=== PATIENT | male | born 1960 | race Caucasian/White ===

== ENCOUNTER 2019-03-08 13:12 | Observation (INO) | payer BC ==
[2019-03-08] MEDS ORDERED: Sodium Chloride 0.9% 1,000 ML IV SCH (16:30)
[2019-03-08] MEDS ORDERED: cloNIDine 0.1 MG TAB PO PRN (16:30)
[2019-03-08] MEDS ORDERED: Gabapentin 100 MG CAP PO PRN (16:32)
[2019-03-08] MEDS ORDERED: Guaifenesin DM 100-10/5 ML UDCUP PO PRN (17:27)
[2019-03-08] MEDS ORDERED: Ondansetron PF 4 MG/2 ML Vial IVP PRN (17:27)
[2019-03-08] MEDS ORDERED: Acetaminophen 650 MG Suppository PR PRN (17:27)
[2019-03-08] MEDS ORDERED: Ondansetron ODT 4 MG TAB PO PRN (17:27)
[2019-03-08] MEDS ORDERED: Acetaminophen 325 MG TAB PO PRN (17:27)
[2019-03-08] MEDS ORDERED: Senokot S 8.6-50 MG TAB PO PRN (17:27)
--- NOTE | 2019-03-08 18:24 | ULT ---
EXAM: Carotid vascular duplex with color and spectral Doppler imaging: HISTORY: Left eye pressure, left neck pain following a fall syncope COMPARISON: None FINDINGS: Evidence for plaque. Right ICA: PSV: 73 cm/s EDV: 17 cm/s ICA/CCA ratio: 0.7 Left ICA: PSV: 105 cm/s EDV: 32 cm/s ICA/CCA ratio: 0.9 Antegrade flow is noted within the right vertebral but flow could not be documented within the left v ertebral. IMPRESSION: No hemodynamically significant stenosis. Minimal plaque evidence for carotid artery vascular disease. No documented flow within the left vertebral artery. The patient bone concern, follow-up CT angiogram of the neck might be of benefit.
[2019-03-08 18:33] LABS: Hemoglobin A1c 5.3 % (4.0-6.0)
[2019-03-08 18:43] LABS: Anion Gap 14 mmol/L (10-20); BUN (Urea Nitrogen) 10 mg/dL (8.4-25.7); Calc. Creatinine Clearance 109 mL/min (70-130); Calcium 9.9 mg/dL (7.8-10.44); Carbon Dioxide 27 mmol/L (22-29); Chloride 89 mmol/L (98-107); Estimated GFR-MDRD 76; Glucose 147 mg/dL (70-105); Sodium 127 mmol/L (136-145)
[2019-03-08 18:45] LABS: Potassium 2.9 mmol/L (3.5-5.1)
[2019-03-08] MEDS ORDERED: Potassium Chloride 20 MEQ TAB PO SCH (19:15)
[2019-03-08] MEDS: Cephalexin 250 MG CAP PO SCH (20:45)
[2019-03-08] MEDS: Famotidine 20 MG TAB PO SCH (20:45)
[2019-03-08] MEDS ORDERED: Atorvastatin Calcium 40 MG TAB PO SCH (21:00)
[2019-03-08] MEDS ORDERED: Lisinopril 20 MG TAB PO SCH (21:00)
--- NOTE | 2019-03-09 01:44 | HP ---
PRIMARY CARE PHYSICIAN: Kallie Boss. CHIEF COMPLAINT: Fall with head injury. HISTORY OF PRESENT ILLNESS: This is a 58-year-old white male with a known history of hypertension, hyperlipidemia, and some previously elevated blood sugars as an outpatient. He reports that he got very nauseated and vomited twice last Friday , 3 days ago, then early Friday morning, he thought he was still a little bit better. He did have one diarrheal bowel movement at that time and then he started feeling better, went out to take care of his dogs. When he came back to the house, he got dizzy and suddenly fell, hit right occipital area of his scalp, also with a contusion on his right knee and some scrapes and contusions all over his left forearm. The patient was unsteady, was able to stand back up and then he fell again on the way to his bathroom. He also had passed some diarrhea into his pants at that time. He stated that he was heading for the bathroom when he had his first fall because he felt like he needed to go to the bathroom again. The patient got up slower this time, went to the bathroom and had one more fall, then he went to the bathroom and then laid down and went to sleep. He was feeling a little better the next day, was able to ambulate around without any falls, but did have some intermittent nausea, but was able to eat and drink a little bit. He did continue drinking a large amount of water, which is what he typically does, usually 8-16 cups per day. Then early this morning, he started having nausea again and had some more vomiting. Also felt intermittently dizzy and was having some trouble concentrating. He states that he overall is still little bit better, but thought getting seen , so he went to the [facility] Emergency Room. There, he was noted to have a sodium of between [address] scan of the head was negative. His EKG did not show anything acute, and he was sent over here for further evaluation. PAST MEDICAL HISTORY: 1. Hypertension. 2. Hypertriglyceridemia. 3. Hypercholesterolemia. 4. Elevated blood sugars, uncertain if he has a diagnosis of diabetes or not. 5. 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 PAST SURGICAL HISTORY: 1. Surgeries to mid and low back with carlos placement. 2. Jaw fracture repair. ALLERGIES: NO KNOWN DRUG ALLERGIES. CURRENT MEDICATIONS: 1. Lisinopril 40 mg at night. 2. Chlorthalidone 25 mg daily. 3. Atorvastatin 40 mg at night. 4. Fenofibrate 145 mg daily. 5. Cephalexin 500 mg twice a day. 6. Gabapentin 100 mg 3 times a day as needed. 7. Aspirin 81 mg daily. He skips this as he is getting too much bruising, but he tries to take it every day. 8. Omeprazole 20 mg daily as needed for reflux symptoms. SOCIAL HISTORY: The patient smokes half pack per day. Drinks between 2 and 5 beers daily. No illicit drug use. He lives by himself alone [place]. FAMILY HISTORY: Father recently of Lewy body dementia. Mother of a massive stroke and had lung problems from her smoking and in her 70s. REVIEW OF SYSTEMS: CONSTITUTIONAL: No fevers. No chills. EYES: No double vision or blurred vision. He has had a little bit more trouble focusing on things since he had his fall with head injury. ENT: No congestion, drainage, or sore throat. CARDIOVASCULAR: No chest pain. No palpitations or racing heart. He think he passed out when he fell on his head, but he is not absolutely certain because it happened so quickly. PULMONARY: No coughing, wheezing, or shortness of breath. GASTROINTESTINAL: No abdominal pain, just had some little bit of cramping with some diarrhea previously and vomiting. No current nausea. No current vomiting. He has not had any diarrhea today. GENITOURINARY: No dysuria or hematuria. MUSCULOSKELETAL: He has chronic back pain and a rash around his chest and abdomen if he twist, this is a chronic problem. SKIN: No rashes. He has had abrasions which are healing well. NEUROLOGIC: He has chronic numbness and tingling in his back and tingling down both arms. This is not changed recently. PHYSICAL EXAMINATION: VITAL SIGNS: Blood pressure 145/76, pulse 87, respirations 20, O2 saturation 98 % on room air, temperature 98.9. GENERAL: This is a well-developed, well-nourished white male, in no acute distress. HEENT: Pupils equal, round, and reactive to light. Oropharynx clear without lesions, erythema, or exudate. NECK: Supple. No lymphadenopathy. No thyroid nodules or enlargement. No tenderness to palpation. He has some mild decreased range of motion due to the neck stiffness, which is a chronic problem. HEART: Regular rate and rhythm. No murmurs, rubs, or gallops. LUNGS: Clear to auscultation bilaterally. No wheezes, crackles, or rhonchi. ABDOMEN: Soft, nontender to palpation. Normoactive bowel sounds. No hepatosplenomegaly or other masses. EXTREMITIES: No clubbing, cyanosis, or edema. NEURO: strength, sensation normal in all extremities, 2+ DTRs in all extremities , cranial nerves 2-12 intact and equal bilaterally, normal finger-nose, rapid alternating movements, and heel to mccarthy bilaterally, gait not tested due to concern for further falls, HINTS exam normal SKIN: The patient has some healing abrasions and superficial lacerations on his left arm. The right occiput has an abrasion healing well and he has some bruises and scrapes on his right knee. LABORATORY DATA: Reviewed from [facility] Emergency Room. His sodium is 120. Creatinine and BUN are normal. Blood sugar is normal. Cardiac marker sets are negative. CBC was grossly unremarkable. CT of the brain showed no hemorrhage or acute changes. Chest x-ray showed no abnormalities. EKG showed normal sinus rhythm with possible previous inferior infarct, but no acute changes. ASSESSMENT: 1. Nausea and vomiting with dizziness, possibly secondary to acute gastroenteritis, infectious versus food poisoning. Symptoms seem to be improving some. We will treat him symptomatically. 2. Dizziness with falls. Uncertain if the patient had a true syncopal episode. He has had some trouble focusing, some trouble staying on task when he is giving his history and he reports occasionally having some difficulty writing, inverting letters and things since the fall with head injury. This most likely represents a postconcussive syndrome. However, there is a possibility of an acute stroke. We will put the patient on observation, get an echocardiogram, carotid Dopplers, and an MRI of the brain. We will go ahead and start him on aspirin 325 mg daily for now as well as resume his home medications. 3. Hyponatremia, likely contributing to the patient's symptoms and may even be the instigator if it drops a little bit quickly last Friday and may have been the source of his dizziness and fall with head injury versus just a drop in his food intake with continued large amounts of water intake which he normally does. We will get a urine sodium and osmolality and serum osmolality, as well as hold the hydrochlorothiazide for now. The patient will likely need to discontinue chlorthalidone for the future and may need to do some water restrictions in the future as well. For now, we will restrict him to 1200 mL of liquid per day and put him on a regular diet, not restrict his sodium at this time also. 4. History of hypertension. Resume home medications except for chlorthalidone. 5. Hyperlipidemia and hypertriglyceridemia, resume statin and TriCor and we will check a lipid profile in the morning. 6. History of previous elevated blood sugars, was supposed to be on metformin but change his diet instead. We will check hemoglobin A1c. 7. Gastrointestinal prophylaxis. We will put the patient on Pepcid twice a day. 8. Deep venous thrombosis prophylaxis, put the patient on Lovenox while in the hospital. CODE STATUS: I did discuss the patient he is a full code. Should he be incapacitated, his medical power of traffic law attorney is his son, Miguel Escalante. Job ID: [id number] [facility]
[2019-03-09 05:22] LABS: #Basophils 0.1 thou/uL (0.0-0.2); #Eosinphils 0.2 thou/uL (0.0-0.7); #Monocytes 0.8 thou/uL (0.11-0.59); #Neutrophils 4.7 thou/uL (1.40-6.50); %Basophils 0.7 % (0.0-1.0); %Lymphocytes 25.6 % (21.0-51.0); %Monocytes 10.5 % (0.0-10.0); %Neutrophils 61.2 % (42.0-75.0); Hemoglobin 11.4 g/dL (14.0-18.0); Mean Corpuscular HGB CONC 34.2 g/dL (32.0-36.0); Mean Corpuscular Volume 81.8 fL (78.0-98.0); Mean Platelet Volume 7.9 fL (7.4-10.4); Platelet Count 90 thou/uL (130-400); Platelet Morphology Comment Appears Decreased; RBC Distribution Width 14.4 % (11.5-14.5); RBC Morphology Normal; Red Blood Cell (RBC) Count 4.09 mill/uL (4.70-6.10); White Blood Cell (WBC) Count 7.6 thou/uL (4.8-10.8)
[2019-03-09 05:25] LABS: Anion Gap 16 mmol/L (10-20); BUN (Urea Nitrogen) 15 mg/dL (8.4-25.7); Calc. Creatinine Clearance 116 mL/min (70-130); Calcium 9.3 mg/dL (7.8-10.44); Carbon Dioxide 23 mmol/L (22-29); Cardiac Risk 2.8 (Less than 4.5); Chloride 92 mmol/L (98-107); Cholesterol 87 mg/dl (< 200 Desired); Estimated GFR-MDRD 81; Glucose 124 mg/dL (70-105); HDL Cholesterol 31 mg/dL (>60 Neg Risk); LDL Cholesterol, Calculated 23 mg/dL; Potassium 3.6 mmol/L (3.5-5.1); Sodium 127 mmol/L (136-145); Triglycerides 163 mg/dL (Less than 150)
[2019-03-09] MEDS: Famotidine 20 MG TAB PO SCH (08:12)
[2019-03-09] MEDS: Enoxaparin Sodium 40 MG/0.4 ML SYRINGE SC SCH ×2 (08:12→10:21)
[2019-03-09] MEDS: Cephalexin 250 MG CAP PO SCH (08:13)
[2019-03-09] MEDS ORDERED: Fenofibrate Nanocrystallized 145 MG TAB PO SCH (09:00)
[2019-03-09] MEDS ORDERED: Chlorthalidone 25 MG TAB PO SCH (09:00)
[2019-03-09] MEDS ORDERED: Citalopram 20 MG TAB PO SCH (09:00)
[2019-03-09] MEDS ORDERED: Aspirin 325 mg Enteric Coated Tablet PO SCH (09:00)
--- NOTE | 2019-03-09 09:11 | PDOC.PN ---
- Subjective Encounter Start Date: 03/09/19 Encounter Start Time: 10:45 Subjective: Patient feeling better this AM. No nausea, no dizziness, ambulating -: without unsteadiness, mild cognotive slowing but much better. - Objective Resuscitation Status - Order Detail: 03/08/19 17:27 Resuscitation Status Routine Resuscitation Status: FULL: Full Resuscitation Discussed with: Patient LONG Reviewed: Yes Vital Signs & Weight: Vital Signs (12 hours) Temp Pulse Resp BP BP Pulse Ox 03/09/19 07:54 98.4 F 78 18 115/76 98 03/09/19 04:00 97.8 F 84 16 123/59 L 98 03/09/19 00:00 98.1 F 81 16 116/74 98 Weight Weight 210 lb I&O: 03/08/19 03/09/19 03/10/19 06:59 06:59 06:59 Intake Total 1240 Balance 1240 Result Diagrams: 03/09/19 04:36 03/09/19 04:36 Phys Exam - Physical Examination Constitutional: NAD HEENT: moist MMs Respiratory: no wheezing, no rales, no rhonchi Cardiovascular: RRR, no significant murmur Gastrointestinal: soft, positive bowel sounds Neurological: non-focal, moves all 4 limbs Psychiatric: normal affect, A&O x 3 Dx/Plan (1) Acute gastroenteritis Code(s): K52.9 - NONINFECTIVE GASTROENTERITIS AND COLITIS, UNSPECIFIED Status : Acute (2) Syncope and collapse Code(s): R55 - SYNCOPE AND COLLAPSE Status: Acute (3) Concussion Code(s): S06.0X9A - CONCUSSION W LOSS OF CONSCIOUSNESS OF UNSP DURATION, INIT Status: Acute (4) Hyponatremia Code(s): E87.1 - HYPO-OSMOLALITY AND HYPONATREMIA Status: Acute Comment: Patient with hx of mild hyponatremia in the past, likely secondary to chronic thiazide diuretic with acute illness and only free water intake, will d/c diuretic and monitor for correction. (5) Hypokalemia Code(s): E87.6 - HYPOKALEMIA Status: Resolved Comment: likely due to N/V, diarrhea, and thiazide diuretic use (6) Dyslipidemia Code(s): E78.5 - HYPERLIPIDEMIA, UNSPECIFIED Status: Chronic Comment: controlled (7) HTN (hypertension) Code(s): I10 - ESSENTIAL (PRIMARY) HYPERTENSION Status: Chronic Comment: controlled - Plan cont current plan of care, PT/OT, DVT proph w/lovenox, DVT proph w/SCDs HbA1c normal -: Carotid doppler normal though unable to see left vertebral artery flow, MRI -: and ECHO pending, if MRI abnormal may need CTA head and neck -: If ECHO and MRI normal can d/c home today. * . - Discharge Day Encounter end time: 11:00
--- NOTE | 2019-03-09 09:22 | MRI ---
MRI Brain WO Con: 03/09/2019 5:30 PM CLINICAL HISTORY: . COMPARISON: None. FINDINGS: Extra axial spaces: Normal in size and morphology for the patient's age. Hemorrhage: None. Ventricular system: Mildly dilated, likely due to compensatory dilatation from mild parenchymal volum e loss. Basal cisterns: Normal. Cerebral parenchyma: Microvascular ischemic changes. Midline shift: None. Cerebellum: Normal. Brainstem: Normal. Paranasal sinuses:Mild paranasal sinus mucosal thickening, and bilateral mastoid fluid. IMPRESSION:No acute intracranial abnormality. Mild chronic ischemic disease. Mild peripheral atrophy with compensatory dilatation of ventricular system. Correlate clinically.
[2019-03-09 14:46] VITALS: BMI 26.9
[2019-03-09 16:04] VITALS: BP 127/83; TEMP 98.5
--- NOTE | 2019-03-10 02:59 | DIS ---
DATE OF ADMISSION: 03/08/2019 DATE OF DISCHARGE: 03/09/2019 PRIMARY CARE PHYSICIAN: Dr. Santino Shetty at [facility]. REASON FOR ADMISSION: Dizziness with falls and head injury. DIAGNOSES AT DISCHARGE: 1. Acute gastroenteritis, resolved. 2. Syncope and collapse. 3. Concussion. 4. Hyponatremia. 5. Hypokalemia. 6. Dyslipidemia. 7. Hypertension. PROCEDURES: 1. Carotid Dopplers with no hemodynamically significant stenosis, could not document flow in the left vertebral. 2. MRI of the brain showing no acute intracranial abnormalities, mild chronic ischemic disease, and mild peripheral atrophy with compensatory dilatation of ventricular system. CONSULTATIONS: None. SUMMARY OF HOSPITAL COURSE: This is a 58-year-old white male with a known history of hypertension, hyperlipidemia, and some previously elevated blood sugars, controlled with diet. He reported nausea and vomiting 3 days ago prior to admission and then had some diarrhea. He felt like he is going to have diarrhea again and then had a fall on his way to the bathroom, felt dizzy and lightheaded prior to falling, may have passed out. He did crack his head with the right occipital scalp contusion and laceration with bleeding. He fell several more times getting to the bathroom at time. He rested and got better at home, but was still very dizzy and nauseated, so went into [facility] Emergency Room on the day of admission. There, he had a negative CT of the head, normal EKG, but was noted to be hyponatremic, sodium in the 120s to 125s and low potassium. The patient was transferred here for further workup. In our hospital, he had carotid Dopplers and MRI as above. He had his potassium replaced and it came back to normal. He had his thiazide diuretic stopped and his sodium improved up to 127. He was having no more dizziness, was able to ambulate steadily without any problems in the hallway with physical therapy. He had no evidence of stroke on exam or on MRI. He did have an echocardiogram which the read is pending, but he is doing well and is eager to go home. DISCHARGE MANAGEMENT: Discharged to home. FOLLOWUP: Follow up with primary care physician in 1 week. Can follow up on echo results at that time. ACTIVITY: As tolerated. DIET: Healthy heart diet, but not a fluid restriction. MEDICATIONS: The patient is to stop his chlorthalidone and resume all of his other home medications. 1. Aspirin 81 mg daily. 2. Atorvastatin 40 mg at night. 3. Cephalexin 500 mg twice a day. 4. Fenofibrate 145 mg daily. 5. Gabapentin 100 mg 3 times a day. 6. Lisinopril 40 mg at night. 7. Omeprazole 20 mg daily. Job ID: [id number]
== END 2019-03-09 17:56 | disposition home or self-care (01) ==
LOC: 2SE 13:41
PROVIDERS: ADMIT Internal Medicine; ATTEND Internal Medicine
DX: R55 Syncope and collapse (principal); R11.2 Nausea with vomiting, unspecified; R42 Dizziness and giddiness; S01.01XA Laceration without foreign body of scalp, initial encounter; S80.01XA Contusion of right knee, initial encounter; S50.12XA Contusion of left forearm, initial encounter; I10 Essential (primary) hypertension; E78.5 Hyperlipidemia, unspecified; E78.00 Pure hypercholesterolemia, unspecified; F17.210 Nicotine dependence, cigarettes, uncomplicated; E87.1 Hypo-osmolality and hyponatremia; K52.9 Noninfective gastroenteritis and colitis, unspecified; S06.0X9A Concussion with loss of consciousness of unspecified duration, initial encounter; Z79.82 Long term (current) use of aspirin; Z79.899 Other long term (current) drug therapy; Z98.890 Other specified postprocedural states; W19.XXXA Unspecified fall, initial encounter; Y92.009 Unspecified place in unspecified non-institutional (private) residence as the place of occurrence of the external cause
CPT/HCPCS: 36415; 70551; 80048; 80061; 83036; 83930; 83935; 84300; 85025; 93306; 93880; G0378; J1650

== ENCOUNTER 2023-06-24 11:23 | Inpatient (IN) | payer BC, OTHER, SELFPAY ==
[~2023-06-24 11:23] MED LIST: Iopamidol-370 76% 500 ML MDV (1 ML CHARGE) ONE; Magnevist 469MG/ML 20 ML VIAL ONE
[2023-06-24] MEDS ORDERED: Boostrix 0.5 ML (Tdap) VIAL (>/=7 yrs of age) ONE (11:28)
[2023-06-24 11:44] LABS: #Monocytes 0.3 thou/uL (0.11-0.59); #Neutrophils 6.5 thou/uL (1.40-6.50); %Basophils 0.4 % (0.0-1.0); %Eosinophils 0.3 % (0.0-10.0); %Lymphocytes 8.1 % (21.0-51.0); Hematocrit 30.9 % (42.0-52.0); Hemoglobin 10.3 g/dL (14.0-18.0); Mean Corpuscular HGB CONC 33.3 g/dL (32.0-36.0); Mean Corpuscular Hemoglobin 27.4 pg (27.0-31.0); Mean Corpuscular Volume 82.2 fl (78.0-98.0); Platelet Count 52 10x3/uL (130-400); RBC Distribution Width 19.1 % (11.5-14.5); Red Blood Cell (RBC) Count 3.76 mill/uL (4.70-6.10); White Blood Cell (WBC) Count 7.5 10x3/uL (4.8-10.8)
[2023-06-24 11:56] LABS: INR-International Normal Ratio 1.2; PTT 31.3 sec (22.9-36.1); Prothrombin Time 15.2 sec (12.0-14.7)
[2023-06-24 12:15] LABS: ALT (SGPT) 118 U/L (8-55); AST (SGOT) 257 U/L (5-34); Acetaminophen Less than 10 mcg/mL (10.0-30.0); Albumin 3.3 g/dL (3.4-4.8); Alcohol Less than 10.0 mg/dL (Less than 10); Alkaline Phosphatase 252 U/L (40-110); Anion Gap 26 mmol/L (10-20); BUN (Urea Nitrogen) 6 mg/dL (8.4-25.7); Bilirubin, Total 2.7 mg/dL (0.2-1.2); Calc. Creatinine Clearance 0 mL/min (70-130); Calcium 8.2 mg/dL (7.8-10.44); Carbon Dioxide 10 mmol/L (23-31); Chloride 91 mmol/L (98-107); Estimated GFR 101; Glucose 259 mg/dL (80-115); Potassium 3.6 mmol/L (3.5-5.1); Protein, Total 6.3 g/dL (5.8-8.1); Salicylate Less than 8.0 mg/dL (15.0-30.0); Sodium 123 mmol/L (136-145)
[2023-06-24 13:02] LABS: Amphetamine Not Detected (NotDetected); Barbiturates Screen Not Detected (NotDetected); Benzodiazepine Screen Not Detected (NotDetected); Cocaine Metabolite Screen Not Detected (NotDetected); Methadone Not Detected (NotDetected); Methamphetamine Not Detected (NotDetected); Opiate Screen Not Detected (NotDetected); Oxycodone Screen Not Detected (NotDetected); Phencyclidine (PCP) Not Detected (NotDetected); THC/Cannabinoid Screen Not Detected (NotDetected); Tricyclic Screen Not Detected (NotDetected)
[2023-06-24] MEDS ORDERED: Cefepime 2 GM VIAL ONE (13:24)
[2023-06-24] MEDS ORDERED: VANCOMYCIN 1.25 GM/250 ML BAG 1.25 GM in Premix Bag 1 BAG IVPB SCH (13:45)
[2023-06-24 13:50] LABS: Actual Bicarbonate (HCO3v) 17.1 mEq/L (22-28); Base Excess -5.7 mEq/L (-2.0 to +3.0); Calcium, Ionized (venous) 0.94 mmol/L (1.16-1.32); Chloride (VBG) 95 mmol/L (98-106); Hematocrit-VBG 31 % (42.0-52.0); Hemoglobin (Hb) 10.4 g/dL (13.1-17.2); Potassium (VBG) 2.84 mmol/L (3.70-5.30); pH (venous) 7.447 (7.32-7.43)
[2023-06-24 14:06] LABS: CKMB 6.6 ng/mL (0-6.6)
[2023-06-24] MEDS ORDERED: Ondansetron ODT 4 MG TAB PO PRN (14:40)
[2023-06-24] MEDS ORDERED: Lorazepam 2 MG/ML VIAL IM PRN (14:40)
[2023-06-24] MEDS ORDERED: Electrolyte Replacement Protocol 1 EACH FS SCH (14:45)
[2023-06-24] MEDS ORDERED: Senokot S 8.6-50 MG TAB PO PRN (14:49)
[2023-06-24] MEDS ORDERED: Calcium Carbonate 500 MG ChewTAB PO PRN (14:49)
[2023-06-24] MEDS ORDERED: Dextrose 5% in Water 1,000 ML IV PRN (14:55)
[2023-06-24] MEDS ORDERED: Dextrose 50% Abboject 50 ML SYRINGE SLOW IVP PRN (14:55)
[2023-06-24] MEDS ORDERED: Insulin Regular 300 UNITS/3 ML VIAL SC PRN ×2 (14:55)
[2023-06-24] MEDS ORDERED: Glucagon 1 MG/ML KIT IM PRN (14:55)
[2023-06-24 14:56] LABS: Lactic Acid 3.6 mmol/L (0.5-2.2)
[2023-06-24] MEDS ORDERED: Lactated Ringer's 1,000 ML IV SCH (15:00)
[2023-06-24 15:08] LABS: Lipase 81 U/L (8-78); Magnesium 1.4 mg/dL (1.6-2.6)
[2023-06-24 15:25] LABS: Bacteria/HPF 1+ HPF (None Seen); Bilirubin Negative (Negative); Blood, Urine 1+ (Negative); CAUTI Indications for Culture Dysuria,urgency,freq; Clarity Clear (Clear); Glucose, Urine (Dipstick) 500 mg/dL (Negative); Ketone, Urine Negative (Negative); Leukocyte Negative Leu/uL (Negative); Nitrite Negative (Negative); Protein, Urine (Dipstick) 10 mg/dL (Neg-Trace); RBC/HPF 0-3 HPF (0-3); Specific Gravity, Urine 1.019 (1.002-1.036); Sperm/HPF Rare HPF (None Seen); Squamous Epithelial 0-3 HPF (0-3); Urobilinogen Normal mg/dL (Less than 2); WBC/HPF 0-3 HPF (0-3)
[2023-06-24 15:26] LABS: Urine Culture Reflex No No
[2023-06-24] MEDS ORDERED: Piperacillin/Tazobactam 3.375 GM in Sodium Chloride 0.9% 100 ML IVPB SCH ×2 (16:00→20:00)
[2023-06-24 16:36] LABS: Anion Gap 16 mmol/L (10-20); BUN (Urea Nitrogen) 4 mg/dL (8.4-25.7); Calc. Creatinine Clearance 0 mL/min (70-130); Calcium 7.4 mg/dL (7.8-10.44); Carbon Dioxide 19 mmol/L (23-31); Chloride 97 mmol/L (98-107); Estimated GFR 105; Glucose 165 mg/dL (80-115); Sodium 129 mmol/L (136-145)
[2023-06-24 16:49] LABS: Potassium 2.6 mmol/L (3.5-5.1)
[2023-06-24 16:50] LABS: Phosphorus 1.4 mg/dL (2.3-4.7)
[2023-06-24] MEDS ORDERED: Magnesium Sulfate In Water 4 GM in Premix Bag 1 BAG IVPB SCH ×2 (17:00→17:15)
[2023-06-24] MEDS ORDERED: Magnesium Sulfate 4 GM in Sodium Chloride 0.9% 250 ML 250 ML IVPB SCH (17:00)
[2023-06-24] MEDS ORDERED: Aspirin 81 mg Enteric Coated Tablet PO SCH (17:00)
[2023-06-24 17:08] LABS: CKMB 8.8 ng/mL (0-6.6)
[2023-06-24] MEDS ORDERED: Electrolyte Replacement Protocol FS PRN (17:15)
[2023-06-24] MEDS ORDERED: PHOS-NAK 1 PKT PACK PO SCH (17:15)
[2023-06-24] MEDS ORDERED: Potassium Chloride 20 MEQ TAB PO SCH (17:15)
[2023-06-24] MEDS ORDERED: D5 1/2 NS w/40 mEq KCL 1,000 ML IV SCH (17:30)
[2023-06-24] MEDS: Thiamine HCl 200 MG/2 ML VIAL SLOW IVP SCH (18:46)
[2023-06-24 19:40] VITALS: BMI 24.0
[2023-06-24] MEDS: Cyanocobalamin (Vitamin B-12) 1,000 MCG TAB PO SCH (21:45)
[2023-06-24] MEDS: Famotidine 20 MG TAB PO SCH (21:45)
[2023-06-24] MEDS: Piperacillin/Tazobactam 3.375 GM in Sodium Chloride 0.9% 100 ML IVPB SCH (21:45)
[2023-06-24 23:21] LABS: Bacteria/HPF None Seen HPF (None Seen); Bilirubin Negative (Negative); Blood, Urine Negative (Negative); Clarity Clear (Clear); Glucose, Urine (Dipstick) Normal (Negative); Ketone, Urine Negative (Negative); Leukocyte Negative Leu/uL (Negative); Nitrite Negative (Negative); Protein, Urine (Dipstick) Negative (Neg-Trace); RBC/HPF 0-3 HPF (0-3); Specific Gravity, Urine 1.015 (1.002-1.036); Squamous Epithelial None Seen HPF (0-3); Urobilinogen Normal mg/dL (Less than 2); WBC/HPF None Seen HPF (0-3)
[2023-06-25] MEDS ORDERED: ABX IVPB PRN (03:27)
[2023-06-25] MEDS: Lorazepam 1 MG TAB PO PRN ×2 (03:40→18:30)
[2023-06-25 04:21] LABS: #Monocytes 0.4 thou/uL (0.11-0.59); #Neutrophils 3.7 thou/uL (1.40-6.50); %Basophils 0.4 % (0.0-1.0); %Eosinophils 0.6 % (0.0-10.0); %Lymphocytes 14.7 % (21.0-51.0); %Monocytes 8.8 % (0.0-10.0); %Neutrophils 74.9 % (42.0-75.0); Hematocrit 28.7 % (42.0-52.0); Hemoglobin 9.4 g/dL (14.0-18.0); Mean Corpuscular HGB CONC 32.8 g/dL (32.0-36.0); Mean Corpuscular Hemoglobin 26.9 pg (27.0-31.0); Mean Platelet Volume 11.9 fL (7.4-10.4); White Blood Cell (WBC) Count 4.9 10x3/uL (4.8-10.8)
[2023-06-25 04:25] LABS: Platelet Count 45 10x3/uL (130-400)
[2023-06-25 04:35] LABS: Lactic Acid 2.8 mmol/L (0.5-2.2)
[2023-06-25 05:30] LABS: ALT (SGPT) 87 U/L (8-55); AST (SGOT) 165 U/L (5-34); Alkaline Phosphatase 222 U/L (40-110); Anion Gap 15 mmol/L (10-20); BUN (Urea Nitrogen) Less than 4 mg/dL (8.4-25.7); Bilirubin, Total 2.1 mg/dL (0.2-1.2); CK (CPK) 518 U/L (30-200); Calc. Creatinine Clearance 134 mL/min (70-130); Calcium 7.3 mg/dL (7.8-10.44); Carbon Dioxide 21 mmol/L (23-31); Chloride 95 mmol/L (98-107); Estimated GFR 107; Globulin 2.7 g/dL (2.4-3.5); Glucose 156 mg/dL (80-115); Magnesium 1.7 mg/dL (1.6-2.6); Phosphorus 2.3 mg/dL (2.3-4.7); Potassium 2.7 mmol/L (3.5-5.1); Protein, Total 5.7 g/dL (5.8-8.1); Sodium 128 mmol/L (136-145)
[2023-06-25] MEDS ORDERED: levETIRAcetam 500 MG/5 ML VIAL IVPB SCH (06:00)
[2023-06-25] MEDS ORDERED: Magnesium 2 GM/50 ML(in water) 2 GM in Premix Bag 1 BAG IVPB SCH (06:15)
[2023-06-25] MEDS ORDERED: Potassium Chloride 20 MEQ TAB PO SCH (06:15)
[2023-06-25] MEDS: Piperacillin/Tazobactam 3.375 GM in Sodium Chloride 0.9% 100 ML IVPB SCH ×2 (06:55→13:12)
[2023-06-25] MEDS: Famotidine 20 MG TAB PO SCH ×2 (09:40→19:56)
[2023-06-25] MEDS: Multivit, Therapeutic 1 TAB PO SCH (09:40)
[2023-06-25] MEDS: Folic Acid 1 MG TAB PO SCH (09:40)
[2023-06-25] MEDS: Potassium Chloride 20 MEQ in Premix Bag 1 BAG IVPB SCH ×4 (09:41→16:21)
[2023-06-25] MEDS: VANCOMYCIN 1.25 GM/250 ML BAG 1.25 GM in Premix Bag 1 BAG IVPB SCH ×2 (09:42→13:17)
[2023-06-25 10:20] LABS: CKMB 7.5 ng/mL (0-6.6)
[2023-06-25] MEDS: Thiamine HCl 200 MG/2 ML VIAL SLOW IVP SCH (16:21)
[2023-06-25] MEDS ORDERED: Lorazepam 2 MG/ML VIAL SLOW IVP PRN (19:42)
[2023-06-25] MEDS: Cyanocobalamin (Vitamin B-12) 1,000 MCG TAB PO SCH (19:56)
[2023-06-25] MEDS: chlordiazePOXIDE HCl 25 MG CAP PO SCH (19:56)
[2023-06-25] MEDS: levETIRAcetam 500 MG TAB PO SCH (19:56)
[2023-06-25 20:13] LABS: Critical Call Chem Troponin I DECREASE; Troponin I 0.544 ng/mL (< 0.028)
[2023-06-25] MEDS ORDERED: Dexmedetomidine 400 MCG, Admixture Fee 1 EACH in Sodium Chloride 0.9% 96 ML IVPB SCH (21:00)
[2023-06-25] MEDS ORDERED: Dexmedetomidine In 0.9 % NaCl 100 ML IVPB SCH (21:00)
[2023-06-25] MEDS: CEFAZOLIN 2 GM in Sodium Chloride 0.9% 100 ML IVPB SCH (21:21)
[2023-06-25 23:00] LABS: Critical Call Chem Troponin I RESULT DECREASING; Troponin I 0.538 ng/mL (< 0.028)
[2023-06-26] MEDS: CEFAZOLIN 2 GM in Sodium Chloride 0.9% 100 ML IVPB SCH ×3 (05:20→22:23)
[2023-06-26 08:28] LABS: #Eosinphils 0.1 thou/uL (0.0-0.7); #Monocytes 0.5 thou/uL (0.11-0.59); #Neutrophils 3.1 thou/uL (1.40-6.50); %Basophils 0.6 % (0.0-1.0); %Eosinophils 1.6 % (0.0-10.0); %Lymphocytes 23.9 % (21.0-51.0); %Monocytes 9.5 % (0.0-10.0); %Neutrophils 63.8 % (42.0-75.0); Hemoglobin 9.9 g/dL (14.0-18.0); Mean Corpuscular HGB CONC 31.9 g/dL (32.0-36.0); Mean Corpuscular Hemoglobin 28.1 pg (27.0-31.0); Mean Corpuscular Volume 88.1 fl (78.0-98.0); Mean Platelet Volume 10.7 fL (7.4-10.4); RBC Distribution Width 19.7 % (11.5-14.5); Red Blood Cell (RBC) Count 3.52 mill/uL (4.70-6.10); White Blood Cell (WBC) Count 4.9 10x3/uL (4.8-10.8)
[2023-06-26 08:37] LABS: Platelet Count 48 10x3/uL (130-400)
[2023-06-26 08:47] LABS: Vancomycin, Trough 6.5 ug/mL
[2023-06-26 08:58] LABS: Anion Gap 12 mmol/L (10-20); BUN (Urea Nitrogen) Less than 4 mg/dL (8.4-25.7); Calc. Creatinine Clearance 120 mL/min (70-130); Carbon Dioxide 24 mmol/L (23-31); Chloride 100 mmol/L (98-107); Estimated GFR 104; Glucose 130 mg/dL (80-115); Potassium 3.4 mmol/L (3.5-5.1); Sodium 133 mmol/L (136-145)
[2023-06-26] MEDS: levETIRAcetam 500 MG TAB PO SCH ×2 (09:54→20:16)
[2023-06-26] MEDS: chlordiazePOXIDE HCl 25 MG CAP PO SCH ×3 (09:54→20:16)
[2023-06-26] MEDS: Folic Acid 1 MG TAB PO SCH (09:55)
[2023-06-26] MEDS: Famotidine 20 MG TAB PO SCH ×2 (09:55→20:16)
[2023-06-26] MEDS: Multivit, Therapeutic 1 TAB PO SCH (09:55)
[2023-06-26] MEDS ORDERED: Magnesium 2 GM/50 ML(in water) 2 GM in Premix Bag 1 BAG IVPB SCH (10:00)
[2023-06-26] MEDS ORDERED: Potassium Chloride 20 MEQ TAB PO SCH (10:00)
[2023-06-26] MEDS: Potassium Chloride 20 MEQ in Premix Bag 1 BAG IVPB SCH ×2 (10:13→13:16)
[2023-06-26 10:45] LABS: Iron 100 ug/dL (65-175); Iron Binding Capacity, Total 320 mcg/dL (261-462)
[2023-06-26 11:11] LABS: Ferritin 147.02 ng/mL (22-322)
[2023-06-26 11:24] LABS: Vitamin B12 Greater than 2000 pg/mL (211-911)
[2023-06-26 15:56] LABS: CEA, Serum 3.45 ng/mL (< or = 5.0)
[2023-06-26 15:57] LABS: PSA-Asymptomatic (SCREENING) 0.346 ng/mL (0-4.0)
[2023-06-26] MEDS: Thiamine HCl 200 MG/2 ML VIAL SLOW IVP SCH (16:44)
[2023-06-26] MEDS: Cyanocobalamin (Vitamin B-12) 1,000 MCG TAB PO SCH (20:16)
[2023-06-27 05:16] LABS: Anion Gap 15 mmol/L (10-20); BUN (Urea Nitrogen) 4 mg/dL (8.4-25.7); Calc. Creatinine Clearance 120 mL/min (70-130); Calcium 8.6 mg/dL (7.8-10.44); Carbon Dioxide 20 mmol/L (23-31); Chloride 103 mmol/L (98-107); Estimated GFR 104; Glucose 115 mg/dL (80-115); Potassium 4.4 mmol/L (3.5-5.1); Sodium 134 mmol/L (136-145)
[2023-06-27] MEDS: CEFAZOLIN 2 GM in Sodium Chloride 0.9% 100 ML IVPB SCH ×3 (05:21→21:31)
[2023-06-27] MEDS: Folic Acid 1 MG TAB PO SCH (09:56)
[2023-06-27] MEDS: levETIRAcetam 500 MG TAB PO SCH ×2 (09:56→20:45)
[2023-06-27] MEDS: Thiamine 100 MG TAB PO SCH (09:57)
[2023-06-27] MEDS: Multivit, Therapeutic 1 TAB PO SCH (09:57)
[2023-06-27] MEDS: chlordiazePOXIDE HCl 25 MG CAP PO SCH ×3 (09:57→20:45)
[2023-06-27] MEDS: Famotidine 20 MG TAB PO SCH ×2 (09:57→20:45)
[2023-06-27] MEDS ORDERED: Lorazepam 0.5 MG TAB PO PRN (14:40)
[2023-06-27] MEDS: Cyanocobalamin (Vitamin B-12) 1,000 MCG TAB PO SCH (20:45)
[2023-06-27] MEDS: Dexamethasone 4 mg/ml Vial SLOW IVP SCH (20:45)
[2023-06-28] MEDS: Guaifenesin DM 100-10/5 ML UDCUP PO PRN ×2 (03:45→10:00)
[2023-06-28] MEDS: CEFAZOLIN 2 GM in Sodium Chloride 0.9% 100 ML IVPB SCH ×3 (05:46→23:01)
[2023-06-28 07:58] LABS: #Monocytes 0.5 thou/uL (0.11-0.59); #Neutrophils 3.9 thou/uL (1.40-6.50); %Basophils 0.4 % (0.0-1.0); %Eosinophils 0.2 % (0.0-10.0); %Lymphocytes 17.3 % (21.0-51.0); %Monocytes 9.4 % (0.0-10.0); %Neutrophils 71.8 % (42.0-75.0); Hematocrit 28.1 % (42.0-52.0); Hemoglobin 8.6 g/dL (14.0-18.0); Mean Corpuscular HGB CONC 30.6 g/dL (32.0-36.0); Mean Corpuscular Hemoglobin 28.1 pg (27.0-31.0); Mean Corpuscular Volume 91.8 fl (78.0-98.0); Mean Platelet Volume 10.7 fL (7.4-10.4); RBC Distribution Width 22.1 % (11.5-14.5); Red Blood Cell (RBC) Count 3.06 mill/uL (4.70-6.10); White Blood Cell (WBC) Count 5.4 10x3/uL (4.8-10.8)
[2023-06-28 08:01] LABS: Platelet Count 55 10x3/uL (130-400)
[2023-06-28 08:16] LABS: Anion Gap 14 mmol/L (10-20); BUN (Urea Nitrogen) 6 mg/dL (8.4-25.7); Calc. Creatinine Clearance 112 mL/min (70-130); Calcium 8.6 mg/dL (7.8-10.44); Carbon Dioxide 24 mmol/L (23-31); Chloride 102 mmol/L (98-107); Estimated GFR 101; Glucose 126 mg/dL (80-115); Magnesium 1.5 mg/dL (1.6-2.6); Phosphorus 4.5 mg/dL (2.3-4.7); Potassium 4.1 mmol/L (3.5-5.1); Sodium 136 mmol/L (136-145)
[2023-06-28] MEDS ORDERED: guaiFENesin 200 MG TAB PO PRN (08:38)
[2023-06-28] MEDS ORDERED: Magnesium 2 GM/50 ML(in water) 2 GM in Premix Bag 1 BAG IVPB SCH (09:00)
[2023-06-28] MEDS: levETIRAcetam 500 MG TAB PO SCH ×2 (10:01→20:18)
[2023-06-28] MEDS: Dexamethasone 4 mg/ml Vial SLOW IVP SCH ×2 (10:01→20:18)
[2023-06-28] MEDS: Folic Acid 1 MG TAB PO SCH (10:01)
[2023-06-28] MEDS: chlordiazePOXIDE HCl 25 MG CAP PO SCH ×2 (10:01→15:21)
[2023-06-28] MEDS: Benzonatate 100 MG CAP PO PRN (10:01)
[2023-06-28] MEDS: Famotidine 20 MG TAB PO SCH ×2 (10:02→20:19)
[2023-06-28] MEDS: Multivit, Therapeutic 1 TAB PO SCH (10:02)
[2023-06-28] MEDS: Thiamine 100 MG TAB PO SCH (10:02)
[2023-06-28] MEDS: Cyanocobalamin (Vitamin B-12) 1,000 MCG TAB PO SCH (20:18)
[2023-06-28] MEDS ORDERED: chlordiazePOXIDE HCl 5 MG CAP PO SCH (21:00)
[2023-06-29 04:03] LABS: #Monocytes 0.6 thou/uL (0.11-0.59); #Neutrophils 5.1 thou/uL (1.40-6.50); %Lymphocytes 15.4 % (21.0-51.0); %Monocytes 8.1 % (0.0-10.0); %Neutrophils 75.5 % (42.0-75.0); Hemoglobin 8.3 g/dL (14.0-18.0); Mean Corpuscular HGB CONC 30.7 g/dL (32.0-36.0); Mean Corpuscular Hemoglobin 28.4 pg (27.0-31.0); Mean Corpuscular Volume 92.5 fl (78.0-98.0); Mean Platelet Volume 10.9 fL (7.4-10.4); RBC Distribution Width 23.2 % (11.5-14.5); Red Blood Cell (RBC) Count 2.92 mill/uL (4.70-6.10); White Blood Cell (WBC) Count 6.8 10x3/uL (4.8-10.8)
[2023-06-29 04:07] LABS: Platelet Count 61 10x3/uL (130-400)
[2023-06-29 04:25] LABS: Phosphorus 3.8 mg/dL (2.3-4.7)
[2023-06-29 04:34] LABS: Anion Gap 13 mmol/L (10-20); BUN (Urea Nitrogen) 8 mg/dL (8.4-25.7); Calc. Creatinine Clearance 119 mL/min (70-130); Calcium 8.7 mg/dL (7.8-10.44); Carbon Dioxide 24 mmol/L (23-31); Chloride 101 mmol/L (98-107); Estimated GFR 104; Glucose 161 mg/dL (80-115); Magnesium 1.7 mg/dL (1.6-2.6); Potassium 4.1 mmol/L (3.5-5.1); Sodium 134 mmol/L (136-145)
[2023-06-29] MEDS: CEFAZOLIN 2 GM in Sodium Chloride 0.9% 100 ML IVPB SCH ×3 (06:27→21:22)
[2023-06-29 08:49] LABS: ALT (SGPT) 27 U/L (8-55); AST (SGOT) 57 U/L (5-34); Albumin 3.2 g/dL (3.4-4.8); Alkaline Phosphatase 132 U/L (40-110); Bilirubin, Direct 0.4 mg/dL (0.1-0.3); Bilirubin, Total 0.7 mg/dL (0.2-1.2)
[2023-06-29] MEDS ORDERED: Magnesium 2 GM/50 ML(in water) 2 GM in Premix Bag 1 BAG IVPB SCH (09:00)
[2023-06-29] MEDS: Thiamine 100 MG TAB PO SCH (09:54)
[2023-06-29] MEDS: Folic Acid 1 MG TAB PO SCH (09:54)
[2023-06-29] MEDS: Famotidine 20 MG TAB PO SCH ×2 (09:54→20:13)
[2023-06-29] MEDS: Multivit, Therapeutic 1 TAB PO SCH (09:54)
[2023-06-29] MEDS: levETIRAcetam 500 MG TAB PO SCH ×2 (09:54→20:13)
[2023-06-29] MEDS: Dexamethasone 4 mg/ml Vial SLOW IVP SCH ×2 (09:55→20:13)
[2023-06-29] MEDS: Cyanocobalamin (Vitamin B-12) 1,000 MCG TAB PO SCH (20:13)
[2023-06-29] MEDS: Benzonatate 100 MG CAP PO PRN (21:21)
[2023-06-29] MEDS: Guaifenesin DM 100-10/5 ML UDCUP PO PRN (21:21)
[2023-06-30 04:36] LABS: #Monocytes 0.8 thou/uL (0.11-0.59); #Neutrophils 4.2 thou/uL (1.40-6.50); %Basophils 0.2 % (0.0-1.0); %Eosinophils 0.2 % (0.0-10.0); %Lymphocytes 19.2 % (21.0-51.0); %Monocytes 12.2 % (0.0-10.0); %Neutrophils 67.2 % (42.0-75.0); Hematocrit 25.6 % (42.0-52.0); Hemoglobin 7.8 g/dL (14.0-18.0); Mean Corpuscular HGB CONC 30.5 g/dL (32.0-36.0); Mean Corpuscular Hemoglobin 28.5 pg (27.0-31.0); Mean Corpuscular Volume 93.4 fl (78.0-98.0); Mean Platelet Volume 10.2 fL (7.4-10.4); Red Blood Cell (RBC) Count 2.74 mill/uL (4.70-6.10); White Blood Cell (WBC) Count 6.2 10x3/uL (4.8-10.8)
[2023-06-30 04:39] LABS: Platelet Count 61 10x3/uL (130-400)
[2023-06-30 05:04] LABS: Anion Gap 10 mmol/L (10-20); BUN (Urea Nitrogen) 11 mg/dL (8.4-25.7); Calc. Creatinine Clearance 121 mL/min (70-130); Calcium 8.5 mg/dL (7.8-10.44); Carbon Dioxide 26 mmol/L (23-31); Chloride 101 mmol/L (98-107); Estimated GFR 104; Glucose 129 mg/dL (80-115); Magnesium 1.7 mg/dL (1.6-2.6); Sodium 133 mmol/L (136-145)
[2023-06-30] MEDS: CEFAZOLIN 2 GM in Sodium Chloride 0.9% 100 ML IVPB SCH ×3 (05:25→21:16)
[2023-06-30] MEDS ORDERED: Magnesium 2 GM/50 ML(in water) 2 GM in Premix Bag 1 BAG IVPB SCH (08:00)
[2023-06-30] MEDS ORDERED: Propofol 500 MG/50 ML VIAL ONE (08:27)
[2023-06-30] MEDS ORDERED: Glycopyrrolate 0.2 MG/ML 5 ML SYRINGE ONE (08:38)
[2023-06-30] MEDS: Multivit, Therapeutic 1 TAB PO SCH (09:37)
[2023-06-30] MEDS: Dexamethasone 4 mg/ml Vial SLOW IVP SCH ×2 (09:37→20:28)
[2023-06-30] MEDS: levETIRAcetam 500 MG TAB PO SCH ×2 (09:37→20:27)
[2023-06-30] MEDS: Famotidine 20 MG TAB PO SCH ×2 (09:37→20:27)
[2023-06-30] MEDS: Folic Acid 1 MG TAB PO SCH (09:37)
[2023-06-30] MEDS: Ferrous Gluconate 324 MG TAB PO SCH (09:37)
[2023-06-30] MEDS: Thiamine 100 MG TAB PO SCH (09:37)
[2023-06-30 13:13] LABS: Methylmalonic Acid 112 nmol/L (0-378)
[2023-06-30] MEDS: Benzonatate 100 MG CAP PO SCH ×2 (16:54→20:27)
[2023-06-30] MEDS: Guaifenesin DM 100-10/5 ML UDCUP PO PRN (20:26)
[2023-06-30] MEDS: Cyanocobalamin (Vitamin B-12) 1,000 MCG TAB PO SCH (20:27)
[2023-07-01] MEDS: CEFAZOLIN 2 GM in Sodium Chloride 0.9% 100 ML IVPB SCH ×3 (04:53→21:53)
[2023-07-01] MEDS: Ferrous Gluconate 324 MG TAB PO SCH (09:04)
[2023-07-01] MEDS: levETIRAcetam 500 MG TAB PO SCH ×2 (09:04→19:55)
[2023-07-01] MEDS: Thiamine 100 MG TAB PO SCH (09:04)
[2023-07-01] MEDS: Famotidine 20 MG TAB PO SCH ×2 (09:04→19:55)
[2023-07-01] MEDS: Multivit, Therapeutic 1 TAB PO SCH (09:05)
[2023-07-01] MEDS: Dexamethasone 4 mg/ml Vial SLOW IVP SCH (09:05)
[2023-07-01] MEDS: Folic Acid 1 MG TAB PO SCH (09:05)
[2023-07-01] MEDS: Benzonatate 100 MG CAP PO SCH ×3 (09:05→19:55)
[2023-07-01 09:36] LABS: #Eosinphils 0.1 thou/uL (0.0-0.7); #Monocytes 1.5 thou/uL (0.11-0.59); #Neutrophils 3.6 thou/uL (1.40-6.50); %Basophils 0.1 % (0.0-1.0); %Eosinophils 1.2 % (0.0-10.0); %Monocytes 19.9 % (0.0-10.0); %Neutrophils 49.1 % (42.0-75.0); Hematocrit 29.5 % (42.0-52.0); Hemoglobin 9.1 g/dL (14.0-18.0); Mean Corpuscular HGB CONC 30.8 g/dL (32.0-36.0); Mean Corpuscular Hemoglobin 29.5 pg (27.0-31.0); Mean Corpuscular Volume 95.8 fl (78.0-98.0); Mean Platelet Volume 10.2 fL (7.4-10.4); RBC Distribution Width 24.4 % (11.5-14.5); Red Blood Cell (RBC) Count 3.08 mill/uL (4.70-6.10); White Blood Cell (WBC) Count 7.3 10x3/uL (4.8-10.8)
[2023-07-01 09:38] LABS: Platelet Count 70 10x3/uL (130-400)
[2023-07-01 10:06] LABS: ALT (SGPT) 24 U/L (8-55); AST (SGOT) 49 U/L (5-34); Albumin 3.3 g/dL (3.4-4.8); Alkaline Phosphatase 119 U/L (40-110); Anion Gap 12 mmol/L (10-20); BUN (Urea Nitrogen) 12 mg/dL (8.4-25.7); Bilirubin, Total 0.7 mg/dL (0.2-1.2); Calc. Creatinine Clearance 113 mL/min (70-130); Calcium 8.8 mg/dL (7.8-10.44); Carbon Dioxide 25 mmol/L (23-31); Chloride 102 mmol/L (98-107); Estimated GFR 102; Globulin 2.7 g/dL (2.4-3.5); Glucose 112 mg/dL (80-115); Potassium 3.7 mmol/L (3.5-5.1); Sodium 135 mmol/L (136-145)
[2023-07-01 10:43] LABS: CellaVision Operator ID LAB.GE; Hypochromia SLIGHT = 6-15 cells HPF (0-5); Ovalocytes SLIGHT = 2-5 cells HPF (0-1); Platelet Adequacy Comment Platelets Decreased; Polychromasia MODERATE = 3-4 cells HPF (0-2)
[2023-07-01] MEDS: Guaifenesin DM 100-10/5 ML UDCUP PO PRN (19:55)
[2023-07-01] MEDS: Cyanocobalamin (Vitamin B-12) 1,000 MCG TAB PO SCH (19:56)
[2023-07-01] MEDS ORDERED: chlordiazePOXIDE HCl 5 MG CAP PO SCH (21:00)
[2023-07-01 22:36] LABS: Histoplasma Yeast AB (CF) Negative (Neg:<1:2)
[2023-07-02] MEDS: CEFAZOLIN 2 GM in Sodium Chloride 0.9% 100 ML IVPB SCH ×3 (05:33→22:27)
[2023-07-02 09:17] LABS: Toxoplasma IgG AB Less than 3.0 IU/mL (0.0-7.1)
[2023-07-02] MEDS ORDERED: PROPOFOL 200 MG/20 ML VIAL ONE (10:28)
[2023-07-02] MEDS ORDERED: Ondansetron HCl/PF 4 MG/2 ML Vial IVP PRN (10:35)
[2023-07-02] MEDS: Folic Acid 1 MG TAB PO SCH (11:39)
[2023-07-02] MEDS: Thiamine 100 MG TAB PO SCH (11:39)
[2023-07-02] MEDS: Benzonatate 100 MG CAP PO SCH ×3 (11:40→22:26)
[2023-07-02] MEDS: Dexamethasone 4 MG TAB PO SCH (11:40)
[2023-07-02] MEDS: Famotidine 20 MG TAB PO SCH ×2 (11:40→22:25)
[2023-07-02] MEDS: Multivit, Therapeutic 1 TAB PO SCH (11:40)
[2023-07-02] MEDS: levETIRAcetam 500 MG TAB PO SCH ×2 (11:40→22:27)
[2023-07-02 15:30] LABS: #Eosinphils 0.1 thou/uL (0.0-0.7); #Monocytes 0.6 thou/uL (0.11-0.59); #Neutrophils 5.4 thou/uL (1.40-6.50); %Basophils 0.4 % (0.0-1.0); %Eosinophils 0.7 % (0.0-10.0); %Lymphocytes 11.9 % (21.0-51.0); %Monocytes 8.7 % (0.0-10.0); %Neutrophils 77.4 % (42.0-75.0); Hematocrit 32.7 % (42.0-52.0); Hemoglobin 10.2 g/dL (14.0-18.0); Mean Corpuscular HGB CONC 31.2 g/dL (32.0-36.0); Mean Corpuscular Volume 92.9 fl (78.0-98.0); Mean Platelet Volume 9.8 fL (7.4-10.4); RBC Distribution Width 24.3 % (11.5-14.5); Red Blood Cell (RBC) Count 3.52 mill/uL (4.70-6.10)
[2023-07-02 15:32] LABS: Platelet Count 93 10x3/uL (130-400)
[2023-07-02 15:48] LABS: Anisocytosis MODERATE=16-30 cells (100X) (0-5/hpf); Platelet Adequacy Comment Appears Decreased; Polychromasia SLIGHT = 2-3 cells (100X) (0-2/hpf)
[2023-07-02 15:51] LABS: ALT (SGPT) 30 U/L (8-55); AST (SGOT) 65 U/L (5-34); Albumin 3.7 g/dL (3.4-4.8); Alkaline Phosphatase 135 U/L (40-110); Anion Gap 15 mmol/L (10-20); BUN (Urea Nitrogen) 13 mg/dL (8.4-25.7); Bilirubin, Total 0.9 mg/dL (0.2-1.2); Calc. Creatinine Clearance 90 mL/min (70-130); Calcium 9.1 mg/dL (7.8-10.44); Carbon Dioxide 25 mmol/L (23-31); Chloride 100 mmol/L (98-107); Estimated GFR 90; Globulin 3.2 g/dL (2.4-3.5); Glucose 216 mg/dL (80-115); Iron 70 ug/dL (65-175); Iron Binding Capacity, Total 526 mcg/dL (261-462); Potassium 4.3 mmol/L (3.5-5.1); Protein, Total 6.9 g/dL (5.8-8.1); Sodium 136 mmol/L (136-145)
[2023-07-02 16:11] LABS: HBSAB Concentration Less than 8.00 mIU/mL; HBSAg Index 0.28 S/CO (0-0.99); Hep B Surf AB Non-Reactive (NonReactive); Hep B Surf Ag Non-Reactive S/CO (NonReactive); Hep C IgG Ab Non-Reactive S/CO (NonReactive); Hep C Index 0.05 S/CO (0-0.79)
[2023-07-02] MEDS ORDERED: Magnesium Citrate 300 ML BOT PO SCH (16:30)
[2023-07-02] MEDS: Ferrous Gluconate 324 MG TAB PO SCH (17:01)
[2023-07-02] MEDS: Cyanocobalamin (Vitamin B-12) 1,000 MCG TAB PO SCH (22:26)
[2023-07-02] MEDS ORDERED: Bisacodyl 10 MG SUPP PR PRN (23:20)
[2023-07-03 04:19] LABS: #Eosinphils 0.1 thou/uL (0.0-0.7); #Monocytes 1.1 thou/uL (0.11-0.59); #Neutrophils 3.6 thou/uL (1.40-6.50); %Basophils 0.3 % (0.0-1.0); %Eosinophils 1.1 % (0.0-10.0); %Lymphocytes 27.2 % (21.0-51.0); %Neutrophils 54.6 % (42.0-75.0); Hematocrit 28.6 % (42.0-52.0); Hemoglobin 8.9 g/dL (14.0-18.0); Mean Corpuscular HGB CONC 31.1 g/dL (32.0-36.0); Mean Corpuscular Hemoglobin 28.9 pg (27.0-31.0); Mean Corpuscular Volume 92.9 fl (78.0-98.0); Mean Platelet Volume 10.1 fL (7.4-10.4); RBC Distribution Width 23.9 % (11.5-14.5); Red Blood Cell (RBC) Count 3.08 mill/uL (4.70-6.10); White Blood Cell (WBC) Count 6.6 10x3/uL (4.8-10.8)
[2023-07-03 04:24] LABS: Platelet Count 77 10x3/uL (130-400)
[2023-07-03 04:41] LABS: ALT (SGPT) 28 U/L (8-55); AST (SGOT) 55 U/L (5-34); Albumin 3.4 g/dL (3.4-4.8); Alkaline Phosphatase 116 U/L (40-110); Anion Gap 12 mmol/L (10-20); BUN (Urea Nitrogen) 11 mg/dL (8.4-25.7); Bilirubin, Total 0.9 mg/dL (0.2-1.2); Calc. Creatinine Clearance 120 mL/min (70-130); Calcium 9.1 mg/dL (7.8-10.44); Carbon Dioxide 25 mmol/L (23-31); Chloride 102 mmol/L (98-107); Estimated GFR 104; Glucose 76 mg/dL (80-115); Potassium 3.7 mmol/L (3.5-5.1); Protein, Total 6.4 g/dL (5.8-8.1); Sodium 135 mmol/L (136-145)
[2023-07-03] MEDS: CEFAZOLIN 2 GM in Sodium Chloride 0.9% 100 ML IVPB SCH ×3 (06:00→21:37)
[2023-07-03 07:26] LABS: Toxoplasma IgM AB Less than 3.0 AU/mL (0.0-7.9)
[2023-07-03] MEDS ORDERED: Polyethylene Glycol 3350 17 GM Packet PO SCH (09:00)
[2023-07-03 09:49] LABS: PTT 32.2 sec (22.9-36.1); Prothrombin Time 13.7 sec (12.0-14.7)
[2023-07-03] MEDS: Thiamine 100 MG TAB PO SCH (11:07)
[2023-07-03] MEDS: Famotidine 20 MG TAB PO SCH ×2 (11:07→21:37)
[2023-07-03] MEDS: levETIRAcetam 500 MG TAB PO SCH ×2 (11:08→21:37)
[2023-07-03] MEDS: Multivit, Therapeutic 1 TAB PO SCH (11:08)
[2023-07-03] MEDS: Folic Acid 1 MG TAB PO SCH (11:08)
[2023-07-03] MEDS: Ferrous Gluconate 324 MG TAB PO SCH (11:08)
[2023-07-03] MEDS: Dexamethasone 4 MG TAB PO SCH (11:08)
[2023-07-03] MEDS: Benzonatate 100 MG CAP PO SCH ×3 (11:08→21:37)
[2023-07-03] MEDS: Senokot S 8.6-50 MG TAB PO SCH (21:36)
[2023-07-03] MEDS: tiZANidine HCl 4 MG TAB PO SCH (21:36)
[2023-07-03] MEDS: Cyanocobalamin (Vitamin B-12) 1,000 MCG TAB PO SCH (21:37)
[2023-07-04 04:29] LABS: #Eosinphils 0.1 thou/uL (0.0-0.7); #Monocytes 0.9 thou/uL (0.11-0.59); %Basophils 0.3 % (0.0-1.0); %Eosinophils 1.7 % (0.0-10.0); %Lymphocytes 31.5 % (21.0-51.0); %Neutrophils 50.8 % (42.0-75.0); Hematocrit 25.3 % (42.0-52.0); Hemoglobin 7.8 g/dL (14.0-18.0); Mean Corpuscular HGB CONC 30.8 g/dL (32.0-36.0); Mean Corpuscular Hemoglobin 28.7 pg (27.0-31.0); Mean Platelet Volume 10.1 fL (7.4-10.4); RBC Distribution Width 23.4 % (11.5-14.5); Red Blood Cell (RBC) Count 2.72 mill/uL (4.70-6.10); White Blood Cell (WBC) Count 5.9 10x3/uL (4.8-10.8)
[2023-07-04 04:45] LABS: Platelet Count 78 10x3/uL (130-400)
[2023-07-04 04:54] LABS: Phosphorus 3.9 mg/dL (2.3-4.7)
[2023-07-04 04:55] LABS: ALT (SGPT) 17 U/L (8-55); AST (SGOT) 37 U/L (5-34); Albumin 3.2 g/dL (3.4-4.8); Alkaline Phosphatase 98 U/L (40-110); Anion Gap 13 mmol/L (10-20); BUN (Urea Nitrogen) 11 mg/dL (8.4-25.7); Bilirubin, Total 0.5 mg/dL (0.2-1.2); Calc. Creatinine Clearance 127 mL/min (70-130); Calcium 8.8 mg/dL (7.8-10.44); Carbon Dioxide 24 mmol/L (23-31); Chloride 103 mmol/L (98-107); Estimated GFR 106; Globulin 2.5 g/dL (2.4-3.5); Glucose 75 mg/dL (80-115); Magnesium 1.7 mg/dL (1.6-2.6); Potassium 3.8 mmol/L (3.5-5.1); Protein, Total 5.7 g/dL (5.8-8.1); Sodium 136 mmol/L (136-145)
[2023-07-04] MEDS: CEFAZOLIN 2 GM in Sodium Chloride 0.9% 100 ML IVPB SCH ×3 (05:20→21:07)
[2023-07-04] MEDS ORDERED: Magnesium 2 GM/50 ML(in water) 2 GM in Premix Bag 1 BAG IVPB SCH (08:00)
[2023-07-04] MEDS: levETIRAcetam 500 MG TAB PO SCH ×2 (09:12→21:09)
[2023-07-04] MEDS: Benzonatate 100 MG CAP PO SCH ×3 (09:12→21:09)
[2023-07-04] MEDS: Senokot S 8.6-50 MG TAB PO SCH ×2 (09:13→21:09)
[2023-07-04] MEDS: Dexamethasone 4 MG TAB PO SCH (09:13)
[2023-07-04] MEDS: Folic Acid 1 MG TAB PO SCH (09:13)
[2023-07-04] MEDS: Famotidine 20 MG TAB PO SCH ×2 (09:13→21:09)
[2023-07-04] MEDS: Multivit, Therapeutic 1 TAB PO SCH (09:13)
[2023-07-04] MEDS: Thiamine 100 MG TAB PO SCH (09:14)
[2023-07-04] MEDS ORDERED: Midazolam HCl 2 mg/2 ml Vial ONE (10:28)
[2023-07-04] MEDS ORDERED: Sodium Bicarbonate 2.5 MEQ/5 ML VIAL ONE (10:29)
[2023-07-04] MEDS ORDERED: fentaNYL 50 mcg/mL 1 mL Vial ONE (10:29)
[2023-07-04] MEDS: Guaifenesin DM 100-10/5 ML UDCUP PO PRN (21:06)
[2023-07-04] MEDS: Cyanocobalamin (Vitamin B-12) 1,000 MCG TAB PO SCH (21:08)
[2023-07-04] MEDS: tiZANidine HCl 4 MG TAB PO SCH (21:08)
[2023-07-05] MEDS: CEFAZOLIN 2 GM in Sodium Chloride 0.9% 100 ML IVPB SCH (05:53)
[2023-07-05 07:05] LABS: #Eosinphils 0.1 thou/uL (0.0-0.7); #Monocytes 0.8 thou/uL (0.11-0.59); #Neutrophils 3.3 thou/uL (1.40-6.50); %Basophils 0.5 % (0.0-1.0); %Lymphocytes 32.6 % (21.0-51.0); %Monocytes 12.9 % (0.0-10.0); %Neutrophils 51.2 % (42.0-75.0); Hematocrit 27.7 % (42.0-52.0); Hemoglobin 8.5 g/dL (14.0-18.0); Mean Corpuscular HGB CONC 30.7 g/dL (32.0-36.0); Mean Corpuscular Hemoglobin 29.1 pg (27.0-31.0); Mean Corpuscular Volume 94.9 fl (78.0-98.0); Mean Platelet Volume 10.3 fL (7.4-10.4); RBC Distribution Width 22.8 % (11.5-14.5); Red Blood Cell (RBC) Count 2.92 mill/uL (4.70-6.10); White Blood Cell (WBC) Count 6.5 10x3/uL (4.8-10.8)
[2023-07-05 07:07] LABS: Platelet Count 87 10x3/uL (130-400)
[2023-07-05 07:27] LABS: Anion Gap 12 mmol/L (10-20); BUN (Urea Nitrogen) 10 mg/dL (8.4-25.7); Calc. Creatinine Clearance 122 mL/min (70-130); Calcium 8.8 mg/dL (7.8-10.44); Carbon Dioxide 25 mmol/L (23-31); Chloride 104 mmol/L (98-107); Estimated GFR 104; Glucose 74 mg/dL (80-115); Magnesium 1.5 mg/dL (1.6-2.6); Phosphorus 3.7 mg/dL (2.3-4.7); Potassium 3.9 mmol/L (3.5-5.1); Sodium 137 mmol/L (136-145)
[2023-07-05] MEDS ORDERED: Benzonatate 100 MG CAP PO SCH (09:00)
[2023-07-05] MEDS ORDERED: Magnesium 2 GM/50 ML(in water) 2 GM in Premix Bag 1 BAG IVPB SCH (09:00)
[2023-07-05 09:08] VITALS: BP 118/72; TEMP 98.1
[2023-07-05] MEDS: Folic Acid 1 MG TAB PO SCH (09:57)
[2023-07-05] MEDS: Dexamethasone 4 MG TAB PO SCH (09:58)
[2023-07-05] MEDS: Thiamine 100 MG TAB PO SCH (09:58)
[2023-07-05] MEDS: levETIRAcetam 500 MG TAB PO SCH (09:58)
[2023-07-05] MEDS: Senokot S 8.6-50 MG TAB PO SCH (09:58)
[2023-07-05] MEDS: Multivit, Therapeutic 1 TAB PO SCH (09:59)
[2023-07-05] MEDS: Famotidine 20 MG TAB PO SCH (09:59)
== END 2023-07-05 11:52 | disposition home or self-care (01) | DRG 70 ==
LOC: ERS 11:23 → ERHOLD 14:14 → IMCU/EMU 17:45 → OBSVTOIN 06-25 09:12 → 2NO 06-29 13:18 → SURG A 07-04 10:22
PROVIDERS: ADMIT Internal Medicine; ATTEND Internal Medicine
PROC: 4A043R1 Measurement of Venous Saturation, Peripheral, Percutaneous Approach (ICD-10-PCS; 2023-06-24)
PROC: HZ2ZZZZ Detoxification Services for Substance Abuse Treatment (ICD-10-PCS; 2023-06-25)
PROC: 4A00X4Z Measurement of Central Nervous Electrical Activity, External Approach (ICD-10-PCS; principal; 2023-06-26)
PROC: B24BZZ4 Ultrasonography of Heart with Aorta, Transesophageal (ICD-10-PCS; 2023-06-30)
PROC: 0D758ZZ Dilation of Esophagus, Via Natural or Artificial Opening Endoscopic (ICD-10-PCS; 2023-07-02)
DX: G93.41 Metabolic encephalopathy (principal); I21.A1 Myocardial infarction type 2; F10.239 Alcohol dependence with withdrawal, unspecified; C79.31 Secondary malignant neoplasm of brain; S27.322A Contusion of lung, bilateral, initial encounter; E87.1 Hypo-osmolality and hyponatremia; E87.20 Acidosis, unspecified; M62.82 Rhabdomyolysis; D64.9 Anemia, unspecified; S30.1XXA Contusion of abdominal wall, initial encounter; I10 Essential (primary) hypertension; K74.60 Unspecified cirrhosis of liver; F17.210 Nicotine dependence, cigarettes, uncomplicated; V89.2XXA Person injured in unspecified motor-vehicle accident, traffic, initial encounter; E87.6 Hypokalemia; E83.42 Hypomagnesemia; E83.39 Other disorders of phosphorus metabolism; R73.9 Hyperglycemia, unspecified; S50.312A Abrasion of left elbow, initial encounter; S80.01XA Contusion of right knee, initial encounter; E78.2 Mixed hyperlipidemia; J44.9 Chronic obstructive pulmonary disease, unspecified; N43.3 Hydrocele, unspecified; N50.3 Cyst of epididymis; R56.9 Unspecified convulsions; K22.2 Esophageal obstruction; Z82.49 Family history of ischemic heart disease and other diseases of the circulatory system; Z98.890 Other specified postprocedural states; Z79.899 Other long term (current) drug therapy; Z79.82 Long term (current) use of aspirin; D69.59 Other secondary thrombocytopenia; C80.1 Malignant (primary) neoplasm, unspecified
CPT/HCPCS: 36415; 36416; 70450; 70553; 71045; 71250; 71260; 72125; 74177; 74181; 76870; 80048; 80053; 80076; 80202; 80306; 80307; 81001; 82010; 82105; 82378; 82550; 82553; 82607; 82728; 82805; 83036; 83540; 83550; 83605; 83615; 83690; 83735; 83921; 83930; 83935; 84100; 84145; 84146; 84300; 84425; 84443; 84484; 85025; 85610; 85652; 85730; 86140; 86301; 86698; 86706; 86708; 86777; 86778; 86803; 86850; 86900; 86901; 87040; 87081; 87086; 87103; 87340; 87385; 87449; 90471; 90715; 93005; 93010; 93306; 93312; 93880; 93976; 95712; 95819; 95957; 96361; 96365; 96367; 96375; 96376; A9579; G0103; G0378; G0390; J0692; J1100; J1815; J1953; J2060; J2250; J2543; J2704; J3010; J3370; J3411; J3475; J3480; J3490; J7030; J8540; Q9967

== ENCOUNTER 2023-07-28 12:58 | Emergency (ER) | payer OTHER, SELFPAY ==
[2023-07-28] MEDS ORDERED: Oxymetazoline HCl 0.05% (30 ML BOT) ONE (13:21)
[2023-07-28 14:01] LABS: #Eosinphils 0.1 thou/uL (0.0-0.7); #Monocytes 0.5 thou/uL (0.11-0.59); #Neutrophils 3.7 thou/uL (1.40-6.50); %Basophils 0.4 % (0.0-1.0); %Lymphocytes 17.6 % (21.0-51.0); %Monocytes 9.2 % (0.0-10.0); %Neutrophils 71.4 % (42.0-75.0); Hematocrit 28.7 % (42.0-52.0); Hemoglobin 8.9 g/dL (14.0-18.0); Mean Corpuscular Hemoglobin 25.7 pg (27.0-31.0); Mean Corpuscular Volume 82.9 fl (78.0-98.0); Mean Platelet Volume 9.8 fL (7.4-10.4); RBC Distribution Width 18.3 % (11.5-14.5); Red Blood Cell (RBC) Count 3.46 mill/uL (4.70-6.10); White Blood Cell (WBC) Count 5.2 10x3/uL (4.8-10.8)
[2023-07-28 14:02] LABS: Platelet Count 79 10x3/uL (130-400)
[2023-07-28 14:14] LABS: INR-International Normal Ratio 1.1; PTT 34.2 sec (22.9-36.1); Prothrombin Time 14.5 sec (12.0-14.7)
[2023-07-28 14:23] LABS: ALT (SGPT) 12 U/L (8-55); AST (SGOT) 21 U/L (5-34); Albumin 3.7 g/dL (3.4-4.8); Alkaline Phosphatase 74 U/L (40-110); Anion Gap 13 mmol/L (10-20); BUN (Urea Nitrogen) 11 mg/dL (8.4-25.7); Bilirubin, Total 0.4 mg/dL (0.2-1.2); Calc. Creatinine Clearance 0 mL/min (70-130); Carbon Dioxide 22 mmol/L (23-31); Chloride 101 mmol/L (98-107); Estimated GFR 105; Globulin 2.5 g/dL (2.4-3.5); Glucose 85 mg/dL (80-115); Potassium 4.2 mmol/L (3.5-5.1); Protein, Total 6.2 g/dL (5.8-8.1); Sodium 132 mmol/L (136-145)
== END 2023-07-28 16:28 | disposition home or self-care (01) ==
LOC: ERS 12:58
DX: R04.0 Epistaxis (principal); J44.9 Chronic obstructive pulmonary disease, unspecified; E78.2 Mixed hyperlipidemia; I10 Essential (primary) hypertension; F17.210 Nicotine dependence, cigarettes, uncomplicated
CPT/HCPCS: 36415; 70450; 80053; 85025; 85610; 85730

== ENCOUNTER 2023-07-29 07:33 | Outpatient (CLI) | payer OTHER ==
[2023-07-29] MEDS ORDERED: Iopamidol 370 76% 100 ML VIAL ONE (10:50)
== END 2023-07-29 07:34 | disposition home or self-care (01) ==
LOC: CT 07:33
PROVIDERS: ATTEND Family Medicine
DX: R91.1 Solitary pulmonary nodule (principal); J98.4 Other disorders of lung; R91.8 Other nonspecific abnormal finding of lung field; R59.0 Localized enlarged lymph nodes
CPT/HCPCS: 71260; Q9967

== ENCOUNTER 2023-09-18 08:45 | Outpatient (CLI) | payer OTHER | END 2023-09-18 08:46 | disposition home or self-care (01) | LOC: PET 08:45 | PROVIDERS: ATTEND Family Medicine | DX: R91.1 Solitary pulmonary nodule (principal); R59.0 Localized enlarged lymph nodes | CPT/HCPCS: 78815; A9552 ==

== ENCOUNTER 2023-10-24 08:57 | Inpatient (IN) | payer OTHER, SELFPAY ==
[2023-10-24 09:53] LABS: Hematocrit 24.5 % (42.0-52.0); Hemoglobin 7.4 g/dL (14.0-18.0); Manual Diff?? YES; Mean Corpuscular HGB CONC 30.2 g/dL (32.0-36.0); Mean Corpuscular Hemoglobin 24.3 pg (27.0-31.0); Mean Corpuscular Volume 80.6 fl (78.0-98.0); Mean Platelet Volume 9.2 fL (7.4-10.4); Red Blood Cell (RBC) Count 3.04 mill/uL (4.70-6.10); White Blood Cell (WBC) Count 2.4 10x3/uL (4.8-10.8)
[2023-10-24 09:54] LABS: Platelet Count 57 10x3/uL (130-400)
[2023-10-24 09:55] LABS: Delete Auto Diff?? YES
[2023-10-24 10:16] LABS: ALT (SGPT) 81 U/L (8-55); AST (SGOT) 103 U/L (5-34); Albumin 3.2 g/dL (3.4-4.8); Alcohol Less than 10.0 mg/dL (Less than 10); Alkaline Phosphatase 138 U/L (40-110); Anion Gap 14 mmol/L (10-20); BUN (Urea Nitrogen) 25 mg/dL (8.4-25.7); Bilirubin, Total 1.3 mg/dL (0.2-1.2); CK (CPK) 93 U/L (30-200); Calc. Creatinine Clearance 0 mL/min (70-130); Calcium 8.2 mg/dL (7.8-10.44); Carbon Dioxide 22 mmol/L (23-31); Chloride 97 mmol/L (98-107); Estimated GFR 100; Globulin 2.3 g/dL (2.4-3.5); Glucose 155 mg/dL (80-115); Protein, Total 5.5 g/dL (5.8-8.1); Sodium 130 mmol/L (136-145)
[2023-10-24] MEDS ORDERED: Potassium Chloride 20 MEQ TAB ONE (10:28)
[2023-10-24 10:45] LABS: Band 9 % (5-11); Eosinophils 1 % (0-10); Hypochromia SLIGHT = 6-15 cells (100X) (0-5/hpf); Lymphocytes 27 % (21-51); Monocytes 11 % (0-10); Neutrophil 52 % (42-75); Platelet Adequacy Comment Platelets Decreased; Polychromasia SLIGHT = 2-3 cells (100X) (0-2/hpf)
[2023-10-24] MEDS ORDERED: Multivitamins, Adult 10 ML, Thiamine HCl 100 MG, Folic Acid 1 MG in Dextrose 5 %-0.45 %... IV SCH (11:00)
[2023-10-24 11:32] LABS: Bacteria/HPF None Seen HPF (None Seen); Bilirubin Negative (Negative); Blood, Urine Negative (Negative); CAUTI Indications for Culture Dysuria,urgency,freq; Clarity Clear (Clear); Glucose, Urine (Dipstick) 500 mg/dL (Negative); Ketone, Urine 10 mg/dL (Negative); Leukocyte Negative Leu/uL (Negative); Nitrite Negative (Negative); Protein, Urine (Dipstick) Negative (Neg-Trace); RBC/HPF 0-3 HPF (0-3); Specific Gravity, Urine 1.008 (1.002-1.036); Squamous Epithelial None Seen HPF (0-3); Urobilinogen Normal mg/dL (Less than 2); WBC/HPF 0-3 HPF (0-3)
[2023-10-24 11:34] LABS: Urine Culture Reflex No No
[2023-10-24 11:48] VITALS: BMI 23.6
[2023-10-24] MEDS ORDERED: Electrolyte Replacement Protocol 1 EACH FS SCH (12:00)
[2023-10-24] MEDS ORDERED: Electrolyte Replacement Protocol FS PRN (12:15)
[2023-10-24] MEDS: Sodium Chloride 0.9% 1,000 ML IV SCH (12:31)
[2023-10-24] MEDS ORDERED: Sodium Chloride 0.9% 1,000 ML IV SCH ×2 (15:30→19:00)
[2023-10-24] MEDS ORDERED: Midodrine HCl 5 MG TAB PO SCH (17:22)
[2023-10-24 17:41] LABS: Magnesium 1.5 mg/dL (1.6-2.6); Sodium 130 mmol/L (136-145)
[2023-10-24] MEDS: oxyCODONE 5 MG TAB PO PRN ×2 (19:15→23:10)
[2023-10-24] MEDS: Midodrine HCl 5 MG TAB PO SCH (20:21)
[2023-10-24] MEDS: levETIRAcetam 500 MG TAB PO SCH (20:21)
[2023-10-24] MEDS ORDERED: Magnesium 2 GM/50 ML(in water) 2 GM in Premix 1 BAG IVPB SCH (20:30)
[2023-10-24] MEDS ORDERED: Potassium Chloride 20 MEQ TAB PO SCH (20:30)
[2023-10-25] MEDS: Sodium Chloride 0.9% 1,000 ML IV SCH ×3 (02:55→16:00)
[2023-10-25 03:54] LABS: Hematocrit 23.5 % (42.0-52.0); Hemoglobin 7.2 g/dL (14.0-18.0); Manual Diff?? YES; Mean Corpuscular HGB CONC 30.6 g/dL (32.0-36.0); Mean Corpuscular Hemoglobin 24.5 pg (27.0-31.0); Mean Corpuscular Volume 79.9 fl (78.0-98.0); Red Blood Cell (RBC) Count 2.94 mill/uL (4.70-6.10); White Blood Cell (WBC) Count 2.8 10x3/uL (4.8-10.8)
[2023-10-25 04:25] LABS: ALT (SGPT) 76 U/L (8-55); AST (SGOT) 106 U/L (5-34); Albumin 2.7 g/dL (3.4-4.8); Alkaline Phosphatase 129 U/L (40-110); Anion Gap 10 mmol/L (10-20); BUN (Urea Nitrogen) 10 mg/dL (8.4-25.7); Bilirubin, Total 0.9 mg/dL (0.2-1.2); Calc. Creatinine Clearance 152 mL/min (70-130); Calcium 7.4 mg/dL (7.8-10.44); Carbon Dioxide 22 mmol/L (23-31); Chloride 103 mmol/L (98-107); Estimated GFR 112; Globulin 2.3 g/dL (2.4-3.5); Glucose 123 mg/dL (80-115); Potassium 3.4 mmol/L (3.5-5.1); Sodium 132 mmol/L (136-145)
[2023-10-25 04:37] LABS: Delete Auto Diff?? YES; Platelet Count 55 10x3/uL (130-400)
[2023-10-25 05:34] LABS: Anisocytosis SLIGHT = 6-15 cells HPF (0-5); Band 8 % (5-11); CellaVision Operator ID LAB.JMM; Eosinophils 2 % (0-10); Hypochromia MODERATE=16-30 cells HPF (0-5); Lymphocytes 29 % (21-51); Macrocytosis SLIGHT = 6-15 cells HPF (0-5); Monocytes 8 % (0-10); Neutrophil 40 % (42-75); Platelet Adequacy Comment Platelets Decreased; Polychromasia SLIGHT = 2-3 cells HPF (0-2); Smudge Cells 25.5 %; Total Cell Count 98
[2023-10-25] MEDS ORDERED: Potassium Chloride 20 MEQ TAB PO SCH (08:00)
[2023-10-25] MEDS ORDERED: Magnesium 2 GM/50 ML(in water) 2 GM in Premix 1 BAG IVPB SCH (09:15)
[2023-10-25] MEDS: levETIRAcetam 500 MG TAB PO SCH ×2 (10:22→20:42)
[2023-10-25] MEDS: Midodrine HCl 5 MG TAB PO SCH ×3 (10:22→20:42)
[2023-10-25] MEDS: Thiamine 100 MG TAB PO SCH (10:22)
[2023-10-25] MEDS: oxyCODONE 5 MG TAB PO PRN ×3 (10:23→20:43)
[2023-10-25 15:20] LABS: Potassium 3.8 mmol/L (3.5-5.1)
[2023-10-25] MEDS ORDERED: Docusate 100 MG CAP PO PRN (15:41)
[2023-10-26] MEDS: oxyCODONE 5 MG TAB PO PRN ×5 (00:46→21:02)
[2023-10-26] MEDS: Sodium Chloride 0.9% 1,000 ML IV SCH ×2 (01:54→17:11)
[2023-10-26 04:39] LABS: Hematocrit 24.2 % (42.0-52.0); Hemoglobin 7.3 g/dL (14.0-18.0); Manual Diff?? YES; Mean Corpuscular HGB CONC 30.2 g/dL (32.0-36.0); Mean Corpuscular Hemoglobin 24.3 pg (27.0-31.0); Mean Corpuscular Volume 80.4 fl (78.0-98.0); Red Blood Cell (RBC) Count 3.01 mill/uL (4.70-6.10); White Blood Cell (WBC) Count 2.4 10x3/uL (4.8-10.8)
[2023-10-26 04:45] LABS: Platelet Count 58 10x3/uL (130-400)
[2023-10-26 04:46] LABS: Delete Auto Diff?? YES
[2023-10-26 05:06] LABS: ALT (SGPT) 76 U/L (8-55); AST (SGOT) 99 U/L (5-34); Albumin 2.7 g/dL (3.4-4.8); Alkaline Phosphatase 122 U/L (40-110); Anion Gap 10 mmol/L (10-20); BUN (Urea Nitrogen) 4 mg/dL (8.4-25.7); Bilirubin, Total 0.9 mg/dL (0.2-1.2); Calc. Creatinine Clearance 177 mL/min (70-130); Calcium 7.5 mg/dL (7.8-10.44); Carbon Dioxide 22 mmol/L (23-31); Chloride 102 mmol/L (98-107); Estimated GFR 117; Globulin 2.4 g/dL (2.4-3.5); Glucose 126 mg/dL (80-115); Magnesium 1.8 mg/dL (1.6-2.6); Potassium 3.7 mmol/L (3.5-5.1); Protein, Total 5.1 g/dL (5.8-8.1); Sodium 130 mmol/L (136-145)
[2023-10-26 06:05] LABS: Anisocytosis SLIGHT = 6-15 cells HPF (0-5); Band 5 % (5-11); CellaVision Operator ID lab.abc; Eosinophils 1 % (0-10); Hypochromia SLIGHT = 6-15 cells HPF (0-5); Large Platelets 2.9 % (0-5); Lymphocytes 16 % (21-51); Microcytosis SLIGHT = 6-15 cells HPF (0-5); Monocytes 21 % (0-10); Neutrophil 58 % (42-75); Platelet Adequacy Comment Platelets Decreased; Polychromasia SLIGHT = 2-3 cells HPF (0-2); Smudge Cells 27.5 %; Total Cell Count 102
[2023-10-26] MEDS ORDERED: Magnesium 2 GM/50 ML(in water) 2 GM in Premix 1 BAG IVPB SCH (08:00)
[2023-10-26] MEDS: levETIRAcetam 500 MG TAB PO SCH ×2 (10:27→21:01)
[2023-10-26] MEDS: Thiamine 100 MG TAB PO SCH (10:27)
[2023-10-26] MEDS: Midodrine HCl 5 MG TAB PO SCH ×2 (19:21→21:01)
[2023-10-26] MEDS ORDERED: Acetaminophen 325 MG TAB PO SCH (23:15)
[2023-10-27 00:56] LABS: Hematocrit 26.5 % (42.0-52.0); Hemoglobin 7.9 g/dL (14.0-18.0); Mean Corpuscular HGB CONC 29.8 g/dL (32.0-36.0); Mean Corpuscular Hemoglobin 24.6 pg (27.0-31.0); Mean Platelet Volume 9.3 fL (7.4-10.4); Red Blood Cell (RBC) Count 3.21 mill/uL (4.70-6.10)
[2023-10-27 01:20] LABS: ALT (SGPT) 86 U/L (8-55); AST (SGOT) 129 U/L (5-34); Albumin 2.8 g/dL (3.4-4.8); Alkaline Phosphatase 131 U/L (40-110); Anion Gap 14 mmol/L (10-20); BUN (Urea Nitrogen) Less than 4 mg/dL (8.4-25.7); Calc. Creatinine Clearance 157 mL/min (70-130); Calcium 7.3 mg/dL (7.8-10.44); Carbon Dioxide 20 mmol/L (23-31); Chloride 100 mmol/L (98-107); Estimated GFR 113; Globulin 2.6 g/dL (2.4-3.5); Glucose 135 mg/dL (80-115); Magnesium 1.9 mg/dL (1.6-2.6); Potassium 3.8 mmol/L (3.5-5.1); Protein, Total 5.4 g/dL (5.8-8.1); Sodium 130 mmol/L (136-145)
[2023-10-27 01:24] LABS: INR-International Normal Ratio 1.1
[2023-10-27 01:29] LABS: Platelet Count 80 10x3/uL (130-400)
[2023-10-27 01:30] LABS: Mean Corpuscular Volume 82.6 fl (78.0-98.0); Phosphorus 1.5 mg/dL (2.3-4.7)
[2023-10-27] MEDS ORDERED: Potassium Phosphate 22 MMOL in Sodium Chloride 0.9% 250 ML 250 ML IVPB SCH (03:00)
[2023-10-27] MEDS: oxyCODONE 5 MG TAB PO PRN ×2 (03:31→20:49)
[2023-10-27] MEDS: Acetaminophen 325 MG TAB PO PRN (06:00)
[2023-10-27 07:18] LABS: Hematocrit 25.6 % (42.0-52.0); Manual Diff?? YES; Mean Corpuscular HGB CONC 31.3 g/dL (32.0-36.0); Mean Corpuscular Hemoglobin 24.9 pg (27.0-31.0); Mean Platelet Volume 9.5 fL (7.4-10.4); Red Blood Cell (RBC) Count 3.21 mill/uL (4.70-6.10); White Blood Cell (WBC) Count 5.3 10x3/uL (4.8-10.8)
[2023-10-27 07:19] LABS: Platelet Count 83 10x3/uL (130-400)
[2023-10-27 07:20] LABS: Delete Auto Diff?? YES; Mean Corpuscular Volume 79.8 fl (78.0-98.0)
[2023-10-27 07:37] LABS: Lactic Acid 1.5 mmol/L (0.5-2.2)
[2023-10-27 07:42] LABS: Anion Gap 12 mmol/L (10-20); BUN (Urea Nitrogen) 4 mg/dL (8.4-25.7); Calc. Creatinine Clearance 160 mL/min (70-130); Calcium 7.6 mg/dL (7.8-10.44); Carbon Dioxide 23 mmol/L (23-31); Chloride 101 mmol/L (98-107); Estimated GFR 113; Glucose 112 mg/dL (80-115); Potassium 3.9 mmol/L (3.5-5.1); Sodium 132 mmol/L (136-145)
[2023-10-27 07:45] LABS: Anisocytosis SLIGHT = 6-15 cells HPF (0-5); Band 24 % (5-11); CellaVision Operator ID lab.dlt; Hypochromia SLIGHT = 6-15 cells HPF (0-5); Lymphocytes 6 % (21-51); Monocytes 15 % (0-10); Neutrophil 55 % (42-75); Platelet Adequacy Comment Platelets Decreased; Poikilocytosis SLIGHT = 6-15 cells HPF (0-5); Polychromasia SLIGHT = 2-3 cells HPF (0-2); Schistocytes SLIGHT = 2-5 cells HPF (0-1); Total Cell Count 101
[2023-10-27] MEDS ORDERED: FLU VACC QS2023-24(6MOS UP)/PF 60 MCG/0.5 ML SYRINGE IM ONE (09:00)
[2023-10-27] MEDS: Sodium Chloride 0.9% 1,000 ML IV SCH ×2 (11:35→20:50)
[2023-10-27] MEDS: Midodrine HCl 5 MG TAB PO SCH ×2 (11:36→20:50)
[2023-10-27] MEDS: levETIRAcetam 500 MG TAB PO SCH ×2 (11:36→20:49)
[2023-10-27] MEDS: Thiamine 100 MG TAB PO SCH (11:36)
[2023-10-27] MEDS ORDERED: Tranexamic Acid 1,000 MG/10 ML VIAL ONE (12:48)
[2023-10-27] MEDS ORDERED: SUGAMMADEX SODIUM 200 MG/2 ML VIAL ONE (13:23)
[2023-10-27] MEDS ORDERED: PHENYLEPHRINE-NS 100 MCG/ML 10 ML SYRINGE ONE ×2 (13:35→14:23)
[2023-10-27] MEDS ORDERED: Rocuronium Bromide 10 MG/ML (10ML VIAL) ONE (13:35)
[2023-10-27] MEDS ORDERED: PROPOFOL 200 MG/20 ML VIAL ONE (13:35)
[2023-10-27] MEDS ORDERED: Ondansetron PF 4 MG/2 ML Vial ONE ×2 (13:35→13:53)
[2023-10-27] MEDS ORDERED: Lidocaine 1% PF 5 ML VIAL ONE (13:35)
[2023-10-27] MEDS ORDERED: fentaNYL 50 mcg/mL 1 mL Vial ONE (13:53)
[2023-10-27] MEDS ORDERED: Vancomycin 1 GM in Premix 1 BAG IVPB SCH (17:30)
[2023-10-27] MEDS: Ipratropium/Albuterol 3 ML NEB NEB PRN (19:33)
[2023-10-27 19:51] LABS: Hematocrit 25.8 % (42.0-52.0); Hemoglobin 8.1 g/dL (14.0-18.0); Manual Diff?? YES; Mean Corpuscular HGB CONC 31.4 g/dL (32.0-36.0); Mean Corpuscular Hemoglobin 24.8 pg (27.0-31.0); Mean Corpuscular Volume 79.1 fl (78.0-98.0); Mean Platelet Volume 9.1 fL (7.4-10.4); Platelet Count 93 10x3/uL (130-400); Red Blood Cell (RBC) Count 3.26 mill/uL (4.70-6.10); White Blood Cell (WBC) Count 10.7 10x3/uL (4.8-10.8)
[2023-10-27 19:54] LABS: Delete Auto Diff?? YES
[2023-10-27 20:14] LABS: Anion Gap 13 mmol/L (10-20); BUN (Urea Nitrogen) 5 mg/dL (8.4-25.7); Calc. Creatinine Clearance 152 mL/min (70-130); Calcium 7.2 mg/dL (7.8-10.44); Carbon Dioxide 19 mmol/L (23-31); Chloride 101 mmol/L (98-107); Estimated GFR 112; Glucose 136 mg/dL (80-115); Magnesium 1.8 mg/dL (1.6-2.6); Potassium 4.5 mmol/L (3.5-5.1); Sodium 128 mmol/L (136-145)
[2023-10-27 20:21] LABS: Anisocytosis SLIGHT = 6-15 cells HPF (0-5); Band 27 % (5-11); CellaVision Operator ID LAB.KB; Dohle Bodies SLIGHT; Hypochromia SLIGHT = 6-15 cells HPF (0-5); Lymphocytes 4 % (21-51); Macrocytosis SLIGHT = 6-15 cells HPF (0-5); Monocytes 13 % (0-10); Neutrophil 55 % (42-75); Nucleated RBC (Manual Ct) 1 % (0); Ovalocytes SLIGHT = 2-5 cells HPF (0-1); Platelet Adequacy Comment Platelets Decreased; Polychromasia SLIGHT = 2-3 cells HPF (0-2); Reactive Lymphocytes 1 % (0-10); Smudge Cells 10.5 %; Total Cell Count 105; Toxic Granulation SLIGHT
[2023-10-27] MEDS ORDERED: Magnesium 2 GM/50 ML(in water) 2 GM in Premix 1 BAG IVPB SCH (21:00)
[2023-10-28] MEDS: oxyCODONE 5 MG TAB PO PRN ×4 (03:27→22:30)
[2023-10-28] MEDS: Acetaminophen 325 MG TAB PO PRN ×2 (03:27→20:05)
[2023-10-28 04:39] LABS: Hematocrit 25.7 % (42.0-52.0); Hemoglobin 7.9 g/dL (14.0-18.0); Manual Diff?? YES; Mean Corpuscular HGB CONC 30.7 g/dL (32.0-36.0); Mean Corpuscular Hemoglobin 24.9 pg (27.0-31.0); Mean Corpuscular Volume 81.1 fl (78.0-98.0); Platelet Count 95 10x3/uL (130-400); Red Blood Cell (RBC) Count 3.17 mill/uL (4.70-6.10); White Blood Cell (WBC) Count 7.9 10x3/uL (4.8-10.8)
[2023-10-28 05:02] LABS: Anion Gap 11 mmol/L (10-20); BUN (Urea Nitrogen) 5 mg/dL (8.4-25.7); Calc. Creatinine Clearance 170 mL/min (70-130); Calcium 7.1 mg/dL (7.8-10.44); Carbon Dioxide 22 mmol/L (23-31); Chloride 101 mmol/L (98-107); Estimated GFR 115; Glucose 147 mg/dL (80-115); Potassium 3.4 mmol/L (3.5-5.1); Sodium 131 mmol/L (136-145)
[2023-10-28 05:14] LABS: Delete Auto Diff?? YES
[2023-10-28 05:47] LABS: Anisocytosis SLIGHT = 6-15 cells HPF (0-5); Band 24 % (5-11); CellaVision Operator ID lab.abc; Hypochromia SLIGHT = 6-15 cells HPF (0-5); Lymphocytes 3 % (21-51); Microcytosis SLIGHT = 6-15 cells HPF (0-5); Monocytes 10 % (0-10); Neutrophil 63 % (42-75); Platelet Adequacy Comment Platelets Decreased; Polychromasia SLIGHT = 2-3 cells HPF (0-2); Smudge Cells 8.9 %; Target Cells SLIGHT = 2-5 cells HPF (0-1); Total Cell Count 101; Toxic Granulation SLIGHT
[2023-10-28] MEDS: Midodrine HCl 5 MG TAB PO SCH ×2 (08:41→20:01)
[2023-10-28] MEDS: levETIRAcetam 500 MG TAB PO SCH ×2 (08:41→20:01)
[2023-10-28] MEDS: Thiamine 100 MG TAB PO SCH (08:41)
[2023-10-28] MEDS: Potassium Chloride 20 MEQ in Premix 1 BAG IVPB SCH ×2 (08:42→11:23)
[2023-10-28] MEDS ORDERED: Vancomycin (BATCH) 1.5 GM in Premix 1 BAG IVPB SCH (10:00)
[2023-10-28] MEDS ORDERED: Morphine 2 MG/ML VIAL SLOW IVP PRN (10:59)
[2023-10-28] MEDS: Vancomycin (BATCH) 1.5 GM in Premix 1 BAG IVPB SCH (13:16)
[2023-10-28 19:48] LABS: BF Color Colorless; BF WBC/Nonhematics Ct.-Manual 138 /cu.mm; Body Fluid Source Bronchial Washings; Clarity Cloudy/Turbid (Clear); Tube # EDTA
[2023-10-28 19:49] LABS: BF RBC Count - Manual 13 /cu.mm
[2023-10-28] MEDS: Dexamethasone 4 mg/ml Vial SLOW IVP SCH (20:02)
[2023-10-29] MEDS: Vancomycin (BATCH) 1.5 GM in Premix 1 BAG IVPB SCH ×2 (02:46→15:08)
[2023-10-29] MEDS: oxyCODONE 5 MG TAB PO PRN ×5 (03:20→19:48)
[2023-10-29 06:16] LABS: Hematocrit 25.8 % (42.0-52.0); Hemoglobin 7.8 g/dL (14.0-18.0); Manual Diff?? YES; Mean Corpuscular HGB CONC 30.2 g/dL (32.0-36.0); Mean Corpuscular Hemoglobin 24.5 pg (27.0-31.0); Mean Corpuscular Volume 80.9 fl (78.0-98.0); Mean Platelet Volume 9.1 fL (7.4-10.4); Red Blood Cell (RBC) Count 3.19 mill/uL (4.70-6.10)
[2023-10-29 06:35] LABS: Anion Gap 10 mmol/L (10-20); BUN (Urea Nitrogen) 6 mg/dL (8.4-25.7); Calc. Creatinine Clearance 173 mL/min (70-130); Carbon Dioxide 24 mmol/L (23-31); Chloride 102 mmol/L (98-107); Estimated GFR 116; Glucose 138 mg/dL (80-115); Potassium 3.7 mmol/L (3.5-5.1); Sodium 132 mmol/L (136-145)
[2023-10-29 06:54] LABS: Delete Auto Diff?? YES; Platelet Count 116 10x3/uL (130-400)
[2023-10-29] MEDS ORDERED: Naloxegol 12.5 MG TAB PO SCH (07:30)
[2023-10-29 07:31] LABS: Band 32 % (5-11); CellaVision Operator ID LAB.GE; Hypochromia SLIGHT = 6-15 cells HPF (0-5); Lymphocytes 5 % (21-51); Macrocytosis SLIGHT = 6-15 cells HPF (0-5); Metamyelocyte 3 % (0-0); Monocytes 10 % (0-10); Myelocyte 1 % (0-0); Neutrophil 50 % (42-75); Platelet Adequacy Comment Platelets Decreased; Polychromasia MODERATE = 3-4 cells HPF (0-2); Total Cell Count 105
[2023-10-29] MEDS: Midodrine HCl 5 MG TAB PO SCH ×2 (08:03→19:48)
[2023-10-29] MEDS: levETIRAcetam 500 MG TAB PO SCH ×2 (08:03→19:48)
[2023-10-29] MEDS: Thiamine 100 MG TAB PO SCH (08:03)
[2023-10-29] MEDS: Naloxegol 12.5 MG TAB PO SCH (08:04)
[2023-10-29] MEDS: Dexamethasone 4 mg/ml Vial SLOW IVP SCH ×2 (08:05→19:49)
[2023-10-29] MEDS: Morphine 2 MG/ML VIAL SLOW IVP PRN (20:16)
[2023-10-30] MEDS: oxyCODONE 5 MG TAB PO PRN ×5 (01:01→23:27)
[2023-10-30 02:26] LABS: Hematocrit 29.1 % (42.0-52.0); Hemoglobin 8.7 g/dL (14.0-18.0); Manual Diff?? YES; Mean Corpuscular HGB CONC 29.9 g/dL (32.0-36.0); Mean Corpuscular Hemoglobin 24.6 pg (27.0-31.0); Mean Corpuscular Volume 82.2 fl (78.0-98.0); Mean Platelet Volume 9.3 fL (7.4-10.4); Platelet Count 143 10x3/uL (130-400); Red Blood Cell (RBC) Count 3.54 mill/uL (4.70-6.10); White Blood Cell (WBC) Count 20.4 10x3/uL (4.8-10.8)
[2023-10-30 02:28] LABS: Delete Auto Diff?? YES
[2023-10-30 02:53] LABS: Anisocytosis SLIGHT = 6-15 cells HPF (0-5); Band 8 % (5-11); CellaVision Operator ID lab.abc; Hypochromia SLIGHT = 6-15 cells HPF (0-5); Lymphocytes 3 % (21-51); Microcytosis SLIGHT = 6-15 cells HPF (0-5); Monocytes 5 % (0-10); Neutrophil 85 % (42-75); Platelet Adequacy Comment Platelets Normal; Polychromasia SLIGHT = 2-3 cells HPF (0-2); Smudge Cells 5.7 %; Total Cell Count 105; Toxic Granulation SLIGHT; Vacuoles SLIGHT
[2023-10-30 03:53] LABS: Vancomycin, Trough 9.7 ug/mL
[2023-10-30] MEDS: Morphine 2 MG/ML VIAL SLOW IVP PRN ×4 (03:53→20:10)
[2023-10-30] MEDS: Vancomycin (BATCH) 1.5 GM in Premix 1 BAG IVPB SCH (04:04)
[2023-10-30] MEDS: Vancomycin (BATCH) 1.25 GM in Premix 1 BAG IVPB SCH ×3 (04:16→20:10)
[2023-10-30 04:32] LABS: Anion Gap 14 mmol/L (10-20); BUN (Urea Nitrogen) 6 mg/dL (8.4-25.7); Calc. Creatinine Clearance 155 mL/min (70-130); Calcium 7.5 mg/dL (7.6-10.4); Carbon Dioxide 20 mmol/L (23-31); Chloride 99 mmol/L (98-107); Estimated GFR 112; Glucose 134 mg/dL (80-115); Potassium 3.9 mmol/L (3.5-5.1); Sodium 129 mmol/L (136-145)
[2023-10-30] MEDS: Midodrine HCl 5 MG TAB PO SCH ×2 (08:24→20:11)
[2023-10-30] MEDS: Naloxegol 12.5 MG TAB PO SCH (08:24)
[2023-10-30] MEDS: levETIRAcetam 500 MG TAB PO SCH ×2 (08:26→20:11)
[2023-10-30] MEDS: Dexamethasone 4 mg/ml Vial SLOW IVP SCH ×3 (08:27→23:27)
[2023-10-30] MEDS: Thiamine 100 MG TAB PO SCH (08:37)
[2023-10-30] MEDS: Sodium Chloride 0.9% 1,000 ML IV SCH (18:31)
[2023-10-31] MEDS: Vancomycin (BATCH) 1.25 GM in Premix 1 BAG IVPB SCH ×2 (01:23→16:53)
[2023-10-31] MEDS: Sodium Chloride 0.9% 1,000 ML IV SCH ×2 (01:23→21:04)
[2023-10-31 03:57] LABS: Hematocrit 24.8 % (42.0-52.0); Hemoglobin 7.7 g/dL (14.0-18.0); Manual Diff?? YES; Mean Corpuscular Hemoglobin 24.9 pg (27.0-31.0); Mean Corpuscular Volume 80.3 fl (78.0-98.0); Mean Platelet Volume 9.1 fL (7.4-10.4); Platelet Count 131 10x3/uL (130-400); Red Blood Cell (RBC) Count 3.09 mill/uL (4.70-6.10)
[2023-10-31 03:59] LABS: Delete Auto Diff?? YES
[2023-10-31 04:18] LABS: ALT (SGPT) 41 U/L (8-55); AST (SGOT) 42 U/L (5-34); Albumin 2.5 g/dL (3.4-4.8); Alkaline Phosphatase 126 U/L (40-110); Anion Gap 12 mmol/L (10-20); BUN (Urea Nitrogen) 6 mg/dL (8.4-25.7); Calc. Creatinine Clearance 167 mL/min (70-130); Calcium 7.9 mg/dL (7.8-10.44); Carbon Dioxide 23 mmol/L (23-31); Chloride 99 mmol/L (98-107); Estimated GFR 115; Globulin 2.9 g/dL (2.4-3.5); Glucose 129 mg/dL (80-115); Potassium 3.9 mmol/L (3.5-5.1); Protein, Total 5.4 g/dL (5.8-8.1); Sodium 130 mmol/L (136-145)
[2023-10-31 04:22] LABS: Anisocytosis SLIGHT = 6-15 cells HPF (0-5); Band 17 % (5-11); CellaVision Operator ID LAB.CLH1; Hypochromia SLIGHT = 6-15 cells HPF (0-5); Lymphocytes 3 % (21-51); Monocytes 2 % (0-10); Neutrophil 78 % (42-75); Ovalocytes SLIGHT = 2-5 cells HPF (0-1); Platelet Adequacy Comment Platelets Normal; Polychromasia SLIGHT = 2-3 cells HPF (0-2); Target Cells SLIGHT = 2-5 cells HPF (0-1); Total Cell Count 102
[2023-10-31] MEDS: oxyCODONE 5 MG TAB PO PRN ×2 (04:25→22:20)
[2023-10-31] MEDS: Dexamethasone 4 mg/ml Vial SLOW IVP SCH ×2 (05:05→13:26)
[2023-10-31] MEDS: Naloxegol 12.5 MG TAB PO SCH (09:35)
[2023-10-31] MEDS: levETIRAcetam 500 MG TAB PO SCH ×2 (09:35→20:45)
[2023-10-31] MEDS: Midodrine HCl 5 MG TAB PO SCH (09:35)
[2023-10-31] MEDS: Thiamine 100 MG TAB PO SCH (09:35)
[2023-10-31] MEDS ORDERED: Lorazepam 2 MG/ML VIAL SLOW IVP PRN (13:13)
[2023-10-31] MEDS ORDERED: Haloperidol Lactate 5 MG/ML VIAL IM SCH (17:45)
[2023-10-31] MEDS ORDERED: Lorazepam 2 MG/ML VIAL SLOW IVP SCH (18:00)
[2023-10-31] MEDS: Dexamethasone 4 MG TAB PO SCH ×2 (18:09→22:21)
[2023-10-31] MEDS: OLANZapine 2.5 MG TAB PO SCH (20:45)
[2023-10-31] MEDS: Acetaminophen 325 MG TAB PO PRN (20:46)
[2023-10-31] MEDS: DAPTOmycin 800 MG in Sodium Chloride 0.9% 50 ML IVPB SCH (21:04)
[2023-10-31] MEDS: Lorazepam 2 MG/ML VIAL SLOW IVP PRN (22:21)
[2023-11-01] MEDS ORDERED: Vancomycin (BATCH) 1.25 GM in Premix 1 BAG IVPB SCH (01:00)
[2023-11-01] MEDS: Dexamethasone 4 MG TAB PO SCH ×4 (05:24→23:26)
[2023-11-01 07:53] LABS: Anion Gap 14 mmol/L (10-20); BUN (Urea Nitrogen) 6 mg/dL (8.4-25.7); Calc. Creatinine Clearance 149 mL/min (70-130); Calcium 8.3 mg/dL (7.8-10.44); Carbon Dioxide 23 mmol/L (23-31); Chloride 101 mmol/L (98-107); Estimated GFR 111; Glucose 123 mg/dL (80-115); Potassium 3.5 mmol/L (3.5-5.1); Sodium 134 mmol/L (136-145)
[2023-11-01] MEDS ORDERED: Potassium Chloride 20 MEQ TAB PO SCH (08:00)
[2023-11-01 08:10] LABS: #Monocytes 0.8 thou/uL (0.11-0.59); %Basophils 0.3 % (0.0-1.0); %Lymphocytes 6.3 % (21.0-51.0); %Monocytes 6.3 % (0.0-10.0); %Neutrophils 84.9 % (42.0-75.0); Hematocrit 28.6 % (42.0-52.0); Hemoglobin 8.6 g/dL (14.0-18.0); Mean Corpuscular HGB CONC 30.1 g/dL (32.0-36.0); Mean Corpuscular Hemoglobin 24.4 pg (27.0-31.0); Mean Corpuscular Volume 81.3 fl (78.0-98.0); Mean Platelet Volume 8.9 fL (7.4-10.4); Red Blood Cell (RBC) Count 3.52 mill/uL (4.70-6.10); White Blood Cell (WBC) Count 12.9 10x3/uL (4.8-10.8)
[2023-11-01 08:51] LABS: Anisocytosis MODERATE=16-30 cells HPF (0-5); Burr Cells SLIGHT = 2-5 cells HPF (0-1); CellaVision Operator ID LAB.NR; Elliptocytes SLIGHT = 2-5 cells HPF (0-1); Hypochromia MODERATE=16-30 cells HPF (0-5); Macrocytosis SLIGHT = 6-15 cells HPF (0-5); Ovalocytes SLIGHT = 2-5 cells HPF (0-1); Platelet Adequacy Comment Platelets Decreased; Polychromasia MODERATE = 3-4 cells HPF (0-2); Schistocytes SLIGHT = 2-5 cells HPF (0-1); Target Cells MODERATE= 6-15 cells HPF (0-1)
[2023-11-01 08:52] LABS: Platelet Count 127 10x3/uL (130-400)
[2023-11-01] MEDS: Naloxegol 12.5 MG TAB PO SCH (09:16)
[2023-11-01] MEDS: Haloperidol 1 MG TAB PO SCH ×2 (09:17→20:27)
[2023-11-01] MEDS: Thiamine 100 MG TAB PO SCH (09:17)
[2023-11-01] MEDS: levETIRAcetam 500 MG TAB PO SCH ×2 (09:17→20:27)
[2023-11-01] MEDS: Sodium Chloride 0.9% 1,000 ML IV SCH ×2 (09:17→21:17)
[2023-11-01] MEDS: Lorazepam 2 MG/ML VIAL SLOW IVP PRN (10:29)
[2023-11-01] MEDS: DAPTOmycin 800 MG in Sodium Chloride 0.9% 50 ML IVPB SCH (20:26)
[2023-11-01] MEDS: Polyethylene Glycol 3350 17 GM Packet PO PRN (20:26)
[2023-11-01] MEDS: oxyCODONE 5 MG TAB PO PRN (20:26)
[2023-11-01] MEDS: OLANZapine 2.5 MG TAB PO SCH (20:27)
[2023-11-02] MEDS: Dexamethasone 4 MG TAB PO SCH ×3 (05:19→20:22)
[2023-11-02 08:46] LABS: #Monocytes 0.6 thou/uL (0.11-0.59); #Neutrophils 11.4 thou/uL (1.40-6.50); %Basophils 0.2 % (0.0-1.0); %Eosinophils 0.1 % (0.0-10.0); %Lymphocytes 5.2 % (21.0-51.0); %Monocytes 4.9 % (0.0-10.0); %Neutrophils 87.8 % (42.0-75.0); Hemoglobin 8.2 g/dL (14.0-18.0); Mean Corpuscular HGB CONC 29.3 g/dL (32.0-36.0); Mean Corpuscular Hemoglobin 24.5 pg (27.0-31.0); Mean Corpuscular Volume 83.6 fl (78.0-98.0); Mean Platelet Volume 8.8 fL (7.4-10.4); Platelet Count 136 10x3/uL (130-400); Red Blood Cell (RBC) Count 3.35 mill/uL (4.70-6.10)
[2023-11-02 09:13] LABS: Anion Gap 15 mmol/L (10-20); BUN (Urea Nitrogen) 7 mg/dL (8.4-25.7); Calc. Creatinine Clearance 152 mL/min (70-130); Calcium 8.4 mg/dL (7.8-10.44); Carbon Dioxide 20 mmol/L (23-31); Chloride 104 mmol/L (98-107); Estimated GFR 112; Glucose 109 mg/dL (80-115); Potassium 4.1 mmol/L (3.5-5.1); Sodium 135 mmol/L (136-145)
[2023-11-02] MEDS: Naloxegol 12.5 MG TAB PO SCH (09:21)
[2023-11-02] MEDS: Haloperidol 1 MG TAB PO SCH ×2 (09:21→20:21)
[2023-11-02] MEDS: Thiamine 100 MG TAB PO SCH (09:21)
[2023-11-02] MEDS: Nystatin 500,000 UNITS/5 ML UDCUP SSW SCH ×4 (09:22→20:22)
[2023-11-02] MEDS: levETIRAcetam 500 MG TAB PO SCH ×2 (09:22→20:22)
[2023-11-02] MEDS: Sodium Chloride 0.9% 1,000 ML IV SCH (16:56)
[2023-11-02] MEDS: Ipratropium/Albuterol 3 ML NEB NEB PRN (16:59)
[2023-11-02] MEDS: OLANZapine 2.5 MG TAB PO SCH (20:21)
[2023-11-02] MEDS: DAPTOmycin 800 MG in Sodium Chloride 0.9% 50 ML IVPB SCH (20:21)
[2023-11-02] MEDS: Polyethylene Glycol 3350 17 GM Packet PO PRN (20:21)
[2023-11-02] MEDS: Lorazepam 2 MG/ML VIAL SLOW IVP PRN (22:32)
[2023-11-03 04:46] LABS: #Monocytes 0.7 thou/uL (0.11-0.59); #Neutrophils 10.8 thou/uL (1.40-6.50); %Basophils 0.2 % (0.0-1.0); %Eosinophils 0.2 % (0.0-10.0); %Lymphocytes 9.4 % (21.0-51.0); %Monocytes 5.4 % (0.0-10.0); %Neutrophils 82.9 % (42.0-75.0); Hematocrit 28.6 % (42.0-52.0); Hemoglobin 8.4 g/dL (14.0-18.0); Mean Corpuscular HGB CONC 29.4 g/dL (32.0-36.0); Mean Corpuscular Hemoglobin 24.5 pg (27.0-31.0); Mean Corpuscular Volume 83.4 fl (78.0-98.0); Mean Platelet Volume 8.6 fL (7.4-10.4); Platelet Count 141 10x3/uL (130-400); Red Blood Cell (RBC) Count 3.43 mill/uL (4.70-6.10)
[2023-11-03 05:12] LABS: Anion Gap 14 mmol/L (10-20); BUN (Urea Nitrogen) 8 mg/dL (8.4-25.7); CK (CPK) 28 U/L (30-200); Calc. Creatinine Clearance 152 mL/min (70-130); Calcium 8.2 mg/dL (7.8-10.44); Carbon Dioxide 21 mmol/L (23-31); Chloride 107 mmol/L (98-107); Estimated GFR 112; Glucose 93 mg/dL (80-115); Potassium 3.7 mmol/L (3.5-5.1); Sodium 138 mmol/L (136-145)
[2023-11-03] MEDS: Ipratropium/Albuterol 3 ML NEB NEB PRN ×2 (07:42→17:15)
[2023-11-03] MEDS: levETIRAcetam 500 MG TAB PO SCH ×2 (09:47→19:47)
[2023-11-03] MEDS: Haloperidol 1 MG TAB PO SCH (09:47)
[2023-11-03] MEDS: Naloxegol 12.5 MG TAB PO SCH (09:47)
[2023-11-03] MEDS: Nystatin 500,000 UNITS/5 ML UDCUP SSW SCH ×4 (09:47→19:47)
[2023-11-03] MEDS: Thiamine 100 MG TAB PO SCH (09:47)
[2023-11-03] MEDS: Dexamethasone 4 MG TAB PO SCH ×3 (09:48→19:47)
[2023-11-03] MEDS: oxyCODONE 5 MG TAB PO PRN (09:59)
[2023-11-03 10:36] LABS: Anisocytosis SLIGHT = 6-15 cells HPF (0-5); CellaVision Operator ID LAB.GE; Hypochromia MODERATE=16-30 cells HPF (0-5); Ovalocytes SLIGHT = 2-5 cells HPF (0-1); Platelet Adequacy Comment Platelets Normal; Polychromasia MODERATE = 3-4 cells HPF (0-2)
[2023-11-03 10:45] LABS: Toxic Granulation SLIGHT
[2023-11-03] MEDS: Sodium Chloride 0.9% 1,000 ML IV SCH (13:42)
[2023-11-03] MEDS: Acetaminophen 325 MG TAB PO PRN (14:43)
[2023-11-03] MEDS: DAPTOmycin 800 MG in Sodium Chloride 0.9% 50 ML IVPB SCH (19:47)
[2023-11-03] MEDS: OLANZapine 2.5 MG TAB PO SCH (19:47)
[2023-11-03] MEDS ORDERED: QUEtiapine 25 MG TAB PO SCH (21:00)
[2023-11-04 07:26] VITALS: BP 138/84; TEMP 97.2
[2023-11-04] MEDS: Dexamethasone 4 MG TAB PO SCH ×2 (09:40→14:33)
[2023-11-04] MEDS: Nystatin 500,000 UNITS/5 ML UDCUP SSW SCH ×2 (09:40→14:34)
[2023-11-04] MEDS: Naloxegol 12.5 MG TAB PO SCH (09:40)
[2023-11-04] MEDS: levETIRAcetam 500 MG TAB PO SCH (09:40)
[2023-11-04] MEDS: Thiamine 100 MG TAB PO SCH (09:40)
[2023-11-04] MEDS: oxyCODONE 5 MG TAB PO PRN (09:45)
[2023-11-04] MEDS: Morphine 2 MG/ML VIAL SLOW IVP PRN (14:17)
[2023-11-04] MEDS: Ipratropium/Albuterol 3 ML NEB NEB PRN (14:33)
[2023-11-04] MEDS ORDERED: Ceftaroline 600 MG in Sodium Chloride 0.9% 100 ML IVPB SCH ×2 (15:00→21:45)
== END 2023-11-04 15:01 | disposition hospice, inpatient (51) | DRG 871 ==
LOC: ERS 08:57 → ERHOLD 10:54 → 2SE 14:02 → T4-B 10-28 12:44 → T4-A 10-31 16:36
PROVIDERS: ADMIT Internal Medicine; ATTEND Internal Medicine
PROC: 0B9F8ZX Drainage of Right Lower Lung Lobe, Via Natural or Artificial Opening Endoscopic, Diagnostic (ICD-10-PCS; principal; 2023-10-27)
PROC: 07D78ZX Extraction of Thorax Lymphatic, Via Natural or Artificial Opening Endoscopic, Diagnostic (ICD-10-PCS; 2023-10-27)
PROC: 3E03329 Introduction of Other Anti-infective into Peripheral Vein, Percutaneous Approach (ICD-10-PCS; 2023-10-27)
PROC: 3E033XZ Introduction of Vasopressor into Peripheral Vein, Percutaneous Approach (ICD-10-PCS; 2023-10-27)
DX: A41.02 Sepsis due to Methicillin resistant Staphylococcus aureus (principal); G93.41 Metabolic encephalopathy; E87.1 Hypo-osmolality and hyponatremia; D61.818 Other pancytopenia; C79.31 Secondary malignant neoplasm of brain; C34.90 Malignant neoplasm of unspecified part of unspecified bronchus or lung; I62.9 Nontraumatic intracranial hemorrhage, unspecified; C79.89 Secondary malignant neoplasm of other specified sites; Z51.5 Encounter for palliative care; Z66 Do not resuscitate; R26.2 Difficulty in walking, not elsewhere classified; E87.6 Hypokalemia; R59.0 Localized enlarged lymph nodes; I10 Essential (primary) hypertension; F17.210 Nicotine dependence, cigarettes, uncomplicated; R74.01 Elevation of levels of liver transaminase levels; G93.89 Other specified disorders of brain; F10.20 Alcohol dependence, uncomplicated; Z79.899 Other long term (current) drug therapy; Z98.890 Other specified postprocedural states; Z87.81 Personal history of (healed) traumatic fracture; R53.81 Other malaise; D63.8 Anemia in other chronic diseases classified elsewhere; Z78.1 Physical restraint status
CPT/HCPCS: 36415; 36416; 70450; 70553; 71045; 77014; 77290; 77334; 80048; 80053; 80202; 80307; 81001; 82140; 82533; 82550; 83605; 83735; 83880; 83930; 83935; 84100; 84145; 84300; 85025; 85027; 85060; 85610; 86850; 86900; 86901; 87040; 87070; 87077; 87102; 87116; 87149; 87186; 87206; 88112; 88172; 88173; 88177; 88305; 88341; 88342; 89051; 93005; 93010; 93306; 94640; 96361; 96365; 97139; J0878; J1100; J1630; J2060; J2272; J2405; J2704; J3010; J3370; J3370-JW; J3411; J3475; J3480; J7042; J7050; J7620; J8540

== ENCOUNTER 2023-11-04 15:35 | Inpatient (IN) | payer OTHER ==
[2023-11-04] MEDS ORDERED: Ipratropium/Albuterol 3 ML NEB NEB PRN (16:12)
[2023-11-04] MEDS ORDERED: Acetaminophen 325 MG TAB PO PRN (16:13)
[2023-11-04] MEDS ORDERED: Lorazepam 2 MG/ML VIAL SLOW IVP PRN (16:14)
[2023-11-04] MEDS ORDERED: oxyCODONE 5 MG TAB PO PRN ×2 (16:16)
[2023-11-04] MEDS ORDERED: Ondansetron PF 4 MG/2 ML Vial IVP PRN (16:17)
[2023-11-04] MEDS ORDERED: Mag-Al 1200 mg/1200 mg/30 ML UDCUP PO PRN (16:18)
[2023-11-04] MEDS: Nystatin 500,000 UNITS/5 ML UDCUP PO SCH ×2 (18:07→19:55)
[2023-11-04] MEDS: Lorazepam 2 MG/ML VIAL SLOW IVP SCH (18:07)
[2023-11-04] MEDS: Senokot S 8.6-50 MG TAB PO SCH (19:55)
[2023-11-04] MEDS: QUEtiapine 25 MG TAB PO SCH (19:55)
[2023-11-04] MEDS: levETIRAcetam 500 MG TAB PO SCH (19:55)
[2023-11-04] MEDS: Dexamethasone 4 MG TAB PO SCH (19:55)
[2023-11-04] MEDS: DAPTOmycin 800 MG in Sodium Chloride 0.9% 50 ML IVPB SCH (20:12)
[2023-11-04] MEDS: Morphine 2 MG/ML VIAL SLOW IVP PRN (22:49)
[2023-11-04] MEDS: Ceftaroline 600 MG in Sodium Chloride 0.9% 100 ML IVPB SCH (22:49)
[2023-11-05] MEDS: Lorazepam 2 MG/ML VIAL SLOW IVP SCH ×4 (00:49→23:46)
[2023-11-05] MEDS: Morphine 2 MG/ML VIAL SLOW IVP PRN ×6 (02:58→23:46)
[2023-11-05 07:32] VITALS: TEMP 97.1
[2023-11-05] MEDS: Dexamethasone 4 MG TAB PO SCH ×2 (09:41→19:20)
[2023-11-05] MEDS: QUEtiapine 25 MG TAB PO SCH ×2 (09:41→19:21)
[2023-11-05] MEDS: levETIRAcetam 500 MG TAB PO SCH ×2 (09:41→19:20)
[2023-11-05] MEDS: Nystatin 500,000 UNITS/5 ML UDCUP PO SCH ×4 (09:41→19:21)
[2023-11-05] MEDS: Senokot S 8.6-50 MG TAB PO SCH ×2 (09:42→19:21)
[2023-11-05] MEDS: Ceftaroline 600 MG in Sodium Chloride 0.9% 100 ML IVPB SCH ×2 (11:33→23:47)
[2023-11-05] MEDS: DAPTOmycin 800 MG in Sodium Chloride 0.9% 50 ML IVPB SCH (20:07)
[2023-11-06] MEDS: Morphine 2 MG/ML VIAL SLOW IVP PRN ×3 (05:09→11:28)
[2023-11-06] MEDS: Lorazepam 2 MG/ML VIAL SLOW IVP SCH (08:03)
[2023-11-06] MEDS: levETIRAcetam 500 MG TAB PO SCH (08:06)
[2023-11-06] MEDS: Dexamethasone 4 MG TAB PO SCH ×2 (08:06→08:08)
[2023-11-06] MEDS: Senokot S 8.6-50 MG TAB PO SCH (08:07)
[2023-11-06] MEDS: QUEtiapine 25 MG TAB PO SCH (08:07)
[2023-11-06] MEDS: Nystatin 500,000 UNITS/5 ML UDCUP PO SCH ×2 (08:07→13:12)
[2023-11-06] MEDS: Ceftaroline 600 MG in Sodium Chloride 0.9% 100 ML IVPB SCH (11:29)
[2023-11-06 11:32] VITALS: BP 104/71
== END 2023-11-06 13:35 | disposition expired | DRG 951 ==
LOC: T4-A 15:35
PROVIDERS: ADMIT Internal Medicine; ATTEND Internal Medicine
DX: Z51.5 Encounter for palliative care (principal); G93.41 Metabolic encephalopathy; A41.9 Sepsis, unspecified organism; C34.90 Malignant neoplasm of unspecified part of unspecified bronchus or lung; C79.31 Secondary malignant neoplasm of brain; E87.1 Hypo-osmolality and hyponatremia; I62.9 Nontraumatic intracranial hemorrhage, unspecified; A49.02 Methicillin resistant Staphylococcus aureus infection, unspecified site; I35.0 Nonrheumatic aortic (valve) stenosis; K76.89 Other specified diseases of liver; Z79.899 Other long term (current) drug therapy; I10 Essential (primary) hypertension; E78.5 Hyperlipidemia, unspecified
CPT/HCPCS: J0712; J0878; J2060; J2272; J3490